=== PATIENT | male | born 1940 | race Caucasian/White ===

== ENCOUNTER 2019-01-16 07:01 | Emergency (ER) | payer OTHER ==
[2019-01-16 07:19] LABS: Absolute Lymphocytes (CBC) 1.3 K/uL (0.7-4.9); Absolute Monocytes 0.7 K/uL (0.1-1.3); Absolute Neutrophil 4.6 K/uL (1.8-8.0); Eosinophils % 1.7 % (0-4.4); Hematocrit 47.7 % (39.6-49.0); Lymphocytes % 19.3 % (15.3-44.8); MPV 9.5 fL (7.6-11.3); Monocytes % 9.9 % (3.3-12.3); RBC Red Blood Cell Count 5.16 M/uL (4.33-5.43)
[2019-01-16 07:25] LABS: Protime INR 0.99
--- NOTE | 2019-01-16 07:31 | ER ---
Nurse's Notes [facility] Name: Paz Crews Age: 78 yrs Sex: Male : 1940 Arrival Date: 01/16/2019 Time: 06:58 Bed 3 Private MD: Diagnosis: Cerebral infarction;Aphasia following cerebral infarction-445am Presentation: 01/16 07:00 Presenting complaint: EMS states: SLURRED SPEECH AND LEFT SIDED WEAKNESS. Transition of bp care: patient was not received from another setting of care. Onset of symptoms was January 16, 2019 at 04:45. Risk Assessment: Do you want to hurt yourself or someone else? Patient reports no desire to harm self or others. 07:00 Method Of Arrival: EMS: [facility] bp 07:00 Acuity: THELMA 1 bp 07:00 An acute neurological deficit is present. The charge nurse has been notified. The bp patient has been moved to a treatment area. The patients blood glucose was checked before arriving to the hospital and was found to be normal. Initial Sepsis Screen: Does the patient meet any 2 criteria? No. Patient's initial sepsis screen is negative. Does the patient have a suspected source of infection? No. Patient's initial sepsis screen is negative. Care prior to arrival: IV initiated. 22 GA, in the right antecubital area, Glucose check: 133. 07:15 Presenting complaint: Patient states: "I woke up at 3 am and I was fine and I was aa5 making some coffee and then at 4:45 am I noticed my left leg was weak and I was having trouble walking". 07:22 Note prehospital BP 200/100. ss Triage Assessment: 07:00 The onset of the patients symptoms was January 16, 2019 at 04:45. bp 08:10 General: Appears distressed, comfortable, Behavior is cooperative, appropriate for age, bp anxious. Neuro: Level of Consciousness is awake, alert, obeys commands, Oriented to person, place, time, situation, Appropriate for age Clam Picker are weak on left Weakness in left Gait is unsteady, Speech is slurred, Facial droop on left, Pupils are PERRLA, Intact. Stroke Activation: Symptom onset < 3 hours Physician: Stroke Attending; Name: ; Notified At: ; Arrived At: Physician: Chief Stroke Resident; Name: ; Notified At: ; Arrived At: Physician: Stroke Resident; Name: ; Notified At: ; Arrived At: Physician: ED Attending; Name: ; Notified At: ; Arrived At: Physician: ED Resident; Name: ; Notified At: ; Arrived At: Historical: - Allergies: 07:00 No Known Allergies; bp - Home Meds: 07:47 aspirin 81 mg Oral chew 1 tab once daily [Active]; Lisinopril Oral [Active]; bp 08:09 Plavix Oral [Active]; bp 07:54 fenofibrate oral oral [Active]; Plavix Oral [Active]; amlodipine oral [Active]; aa5 Simvastatin Oral [Active]; Lyrica Oral [Active]; Diltiazem Oral [Active]; - PMHx: 07:47 Hypertension; CVA; bp 08:09 High Cholesterol; bp - Immunization history:: Adult Immunizations up to date. - Social history:: Smoking status: Patient uses tobacco products, unknown amount. - Ebola Screening: : Patient negative for fever greater than or equal to 101.5 degrees Fahrenheit, and additional compatible Ebola Virus Disease symptoms Patient denies exposure to infectious person Patient denies travel to an Ebola-affected area in the 21 days before illness onset No symptoms or risks identified at this time. - Family history:: not pertinent. Screenin:58 Abuse screen: Denies threats or abuse. Denies injuries from another. Nutritional bp screening: No deficits noted. Tuberculosis screening: No symptoms or risk factors identified. Fall Risk No fall in past 12 months (0 pts). Secondary diagnosis (15 points) impaired mobility, IV access (20 points). Ambulatory Aid- None/Bed Rest/Nurse Assist (0 pts). Gait- Weak (10 pts.). Mental Status- Oriented to own ability (0 pts). Total Joy Fall Scale indicates High Risk Score (45 or more points). Fall prevention measures have been instituted. Side Rails Up X 2 Placed Close to Nursing Station Frequent Obs/Assessments Occuring As available patient and family educated on Fall Prevention Program and Strategies. Assessment: 07:15 VAN Scoring: Arm Drift: Minor drift Visual Disturbance: No visual disturbance noted. bp Aphasia: No aphasia noted. Neglect: No neglect noted. 07:15 General: Appears in no apparent distress. comfortable, obese, well groomed, well bp developed, Behavior is cooperative, appropriate for age, anxious. Pain: Denies pain. Neuro: Level of Consciousness is awake, alert, obeys commands, Oriented to person, place, time, situation, Appropriate for age. Cardiovascular: Rhythm is sinus rhythm. Respiratory: Reports Airway is patent Respiratory effort is even, unlabored, Respiratory pattern is regular, symmetrical. GI: No signs and/or symptoms were reported involving the gastrointestinal system. : No signs and/or symptoms were reported regarding the genitourinary system. EENT: No deficits noted. Derm: No deficits noted. Musculoskeletal: Range of motion: intact in all extremities. 07:15 Reassessment: Pt back from CT . Neuro: Level of Consciousness is awake, alert, obeys aa5 commands, Oriented to person, place, time, situation, Clam Picker are weak on left Weakness in left arm(s) leg(s) Speech is slurred, Facial droop on left, Pupils are PERRLA, Reports paresthesias in left arm and left leg. 07:25 Reassessment: Pt reports he takes a "blood thinner" but does not know the name, unable aa5 to contact pt's pharmacy at this time due to being closed. Pt states "somebody can just go to my house and look for the blood thinner, it's unlocked". Pt notified [facility] will be contacted to go look for the medications. VO to hold TPA administration at this time.. 07:32 Reassessment: Pt is unsure as to which medication his is currently taking for ss anticoagulation therapy. [facility] pharmacy closed at this time, JUAN FRANCISCO Ayon (PCP) has been paged. Called PD with patient's permission to enter home and locate medication on kitchen counter. 07:35 The patient has not been NPO before screening. The patient is alert, and able to follow bp commands. The patient exhibits slurred or garbled speech. The patient is not exhibiting difficulty speaking. The patient does not exhibit difficulty understanding words. The patient is able to swallow own secretions with no drooling or need for suction. Patient tolerated one teaspoon of water. No drooling, immediate coughing, gurgling, or clearing of the throat was noted. The patient tolerated 90mL of water. No drooling, immediate coughing, gurgling, or clearing of the throat was noted. The patient passed the bedside swallow screening. Oral medications may be given as ordered. Contact Physician for further diet orders. Provider notified of bedside swallow screening results: Isreal Montanez MD. 07:35 T-PA (Activase) Screening: Indications: Definite evidence of stroke, ischemic, embolic, bp or hypertensive: Yes. Treatment will start within 4.5 hours onset of symptoms: Yes. No evidence of intracranial hemorrhage or CT of head and no evidence of peripheral hemorrhage or recent CVA: Yes. Consent for thrombolytic therapy: Yes. 07:35 Reassessment: TPA consent form obtained and signed by patient. TPA on hold at bedside. .aa5 07:35 Reassessment: Patient is alert, oriented x 3, equal unlabored respirations, skin aa5 warm/dry/pink. Pain: Denies pain. Neuro: Level of Consciousness is awake, alert, obeys commands, Oriented to person, place, time, situation, Clam Picker are weak on left Weakness in left arm(s) leg(s) Speech is slurred, Facial droop on left, Pupils are PERRLA. Cardiovascular: Heart tones S1 S2 present Rhythm is sinus rhythm. Respiratory: Airway is patent Respiratory effort is even, unlabored, Respiratory pattern is regular, symmetrical, Breath sounds are clear bilaterally. Derm: Skin is pink, warm \\T\\ dry. 07:45 Reassessment: On phone again with [facility] stated that they could only see two ss medications, one being Amoxicillin and a muscle relaxer. Pt states that there are additional medications in a [employer] bag on the same counter. [facility] dispatch states they will notify the responding officer. 07:54 Reassessment: [facility] found Plavix to be medication of possible concern. Decision to ss administer TPA NOW. 07:55 Reassessment: TPA administered now per . PT currently in CT, accompanied by me and aa5 Bernie Wilson RN. On monitor. See Criteria for TPA Administration in pt's chart for dosage. . 08:05 Reassessment: PT RETURNED FROM [facility]A. [facility]S FOR TRANSPORT TO [facility]. 08:10 Reassessment: Pt back from CTA. Report given to life flight. . aa5 08:15 Reassessment: PT AN[facility]ION[facility]TE WITH [facility]. bp Vital Signs: 07:12 BP 180 / 91; Pulse 65; Resp 18; Temp 97; Pulse Ox 99% ; Weight 92.99 kg; Height 5 ft. 9 bp in. (175.26 cm); 07:35 BP 178 / 97; Pulse 64; Resp 16 S; Pulse Ox 97% on R/A; aa5 08:00 BP 163 / 99; Pulse 80; Resp 16 S; Pulse Ox 98% on R/A; Pain 0/10; aa5 07:12 Body Mass Index 30.27 (92.99 kg, 175.26 cm) bp [place] Coma Score: 07:12 Eye Response: spontaneous(4). Verbal Response: oriented(5). Motor Response: obeys ss commands(6). Total: 15. 07:27 Eye Response: spontaneous(4). Verbal Response: oriented(5). Motor Response: obeys ss commands(6). Total: 15. 07:35 Eye Response: spontaneous(4). Verbal Response: oriented(5). Motor Response: obeys aa5 commands(6). Total: 15. 08:00 Eye Response: spontaneous(4). Verbal Response: oriented(5). Motor Response: obeys aa5 commands(6). Total: 15. NIH Stroke Scale Scores: 07:15 NIHSS Score: 6 aa5 07:35 NIHSS Score: 6 aa5 07:36 NIHSS Score: 5 arturo 08:00 NIHSS Score: 6 aa5 ED Course: 06:58 Patient arrived in ED. bp 06:58 Patient has correct armband on for positive identification. Placed in gown. Bed in low bp position. Call light in reach. Side rails up X2. 07:00 Maintain EMS IV. Dressing intact. Good blood return noted. Site clean \\T\\ dry. Gauge \\T\\ bp site: 22 GAUGE R AC. 07:01 Triage completed. bp 07:10 Latricia Samuel, [employer] is Primary Nurse. aa5 07:11 Isreal Montanez MD is Attending Physician. arturo 07:13 CT Stroke Brain w/o Contrast In Process Unspecified. EDMS 07:25 X-ray completed. Portable x-ray completed in exam room. Patient tolerated procedure kp1 well. 07:25 Arm band placed on right wrist. ss 07:26 Stroke CXR 1 View In Process Unspecified. EDMS 07:30 Inserted saline lock: 20 gauge in left antecubital area, using aseptic technique. bp 07:43 \\T\\0721 Dr. Montanez initiated a transfer with Laine at the [facility] transfer eb center/ \\T\\ [address] Thurston the neurologist front maker for [facility] with Dr. Montanez for patient transfer consultation/ \\T\\ 0725 administrative approval given by Laine Shabazz ; patient is going to [address] [place] [address] bed 10 ; Dr. Thurston has accepted the patient in transfer ; report to be called to [phone] / \\T\\ 0736 called the [facility] flight team for transport/ Cam gave an ETA of 24 minutes. 08:05 CT Head Angio In Process Unspecified. EDMS 08:17 No provider procedures requiring assistance completed. Patient transferred, IV remains ss in place. Administered Medications: 07:40 Drug: NS 0.9% 1000 ml Route: IV; Rate: 1 bolus; Site: right antecubital; bp 08:10 Follow up: IV Status: Order to discontinue infusion; IV Intake: 400ml aa5 08:10 Follow up: IV Status: Order to discontinue infusion aa5 08:18 Follow up: IV Status: Infusion continued upon transfer bp 07:40 Drug: foLIC Acid 1 mg Route: IVPB; Site: right antecubital; bp 08:17 Follow up: IV Status: Completed infusion; IV Intake: 50ml bp 07:40 Drug: Pepcid 20 mg Route: IVP; Site: right antecubital; bp 08:17 Follow up: Response: No adverse reaction bp 07:55 Drug: ACTIvase {Co-Signature: ss (Bernie Wilson RN).} Route: IV Thrombolytics; Rate: aa5 calculated rate; Infused Over: 60 mins; 07:55 Follow up: Pt was given 8.37mg over 1 minute as bolus and 75.3mg over 1 hour (see TPA aa5 Administration paper in pt's chart for dosage) 08:10 Follow up: Response: No adverse reaction aa5 08:19 Follow up: Response: Other; CONTINUED ON TRANSFER bp Point of Care Testing: Blood Glucose: 07:12 Blood Glucose: 133 mg/dL; bp Ranges: Intake: 08:10 IV: 400ml; Total: 400ml. aa5 08:17 IV: 50ml; Total: 450ml. bp Outcome: 07:30 ER care complete, transfer ordered by arturo 08:17 Transferred by helicopter to [facility], Transfer form completed. ss X-rays sent w/ patient. 08:17 Condition: stable 08:17 Condition: stable 08:17 Instructed on the need for transfer. 08:21 Patient left the ED. NIH Stroke Scale - NIH Stroke Score Date: 01/16/2019 Time: 07:15 Total Score = 6 1a. Level of Consciousness (LOC) - 0(Alert) 1b. Level of Consciousness (LOC) (Year \\T\\ Age) - 0(Both) 1c. LOC Commands (Open \\T\\ Closes Eyes/Family Specialist) - 0(Both) 2. Best Gaze (Lateral Gaze Paresis) - 0(Normal) 3. Visual Field Loss - 0(No visual loss) 4. Facial Palsy - 1(Minor Paralysis) 5a. Left Arm: Motor (10-second hold) - 2(Drift, some effort against gravity) 5b. Right Arm: Motor (10-second hold) - 0(No drift) 6a. Left Leg: Motor (5-second hold - always test supine) - 1(Drift) 6b. Right Leg: Motor (5-second hold - always test supine) - 0(No drift) 7. Limb Ataxia (finger/nose \\T\\ heel/azul - test with eyes open) - 0(Absent) 8. Sensory Loss (pinprick arms/legs/face) - 1(Mild to moderate loss) 9. Best Language: Aphasia (description/naming/reading) - 0(No aphasia) 10. Dysarthria (speech clarity - read or repeat words) - 1(Mild to Moderate) 11. Extinction and Inattention (visual/tactile/auditory/spatial/personal) - 0(No abnormality) Initials: aa5 NIH Stroke Scale - NIH Stroke Score Date: 01/16/2019 Time: 07:35 Total Score = 6 1a. Level of Consciousness (LOC) - 0(Alert) 1b. Level of Consciousness (LOC) (Year \\T\\ Age) - 0(Both) 1c. LOC Commands (Open \\T\\ Closes Eyes/Family Specialist) - 0(Both) 2. Best Gaze (Lateral Gaze Paresis) - 0(Normal) 3. Visual Field Loss - 0(No visual loss) 4. Facial Palsy - 1(Minor Paralysis) 5a. Left Arm: Motor (10-second hold) - 2(Drift, some effort against gravity) 5b. Right Arm: Motor (10-second hold) - 0(No drift) 6a. Left Leg: Motor (5-second hold - always test supine) - 1(Drift) 6b. Right Leg: Motor (5-second hold - always test supine) - 0(No drift) 7. Limb Ataxia (finger/nose \\T\\ heel/azul - test with eyes open) - 0(Absent) 8. Sensory Loss (pinprick arms/legs/face) - 1(Mild to moderate loss) 9. Best Language: Aphasia (description/naming/reading) - 0(No aphasia) 10. Dysarthria (speech clarity - read or repeat words) - 1(Mild to Moderate) 11. Extinction and Inattention (visual/tactile/auditory/spatial/personal) - 0(No abnormality) Initials: aa5 NIH Stroke Scale - NIH Stroke Score Date: 01/16/2019 Time: 07:36 Total Score = 5 1a. Level of Consciousness (LOC) - 0(Alert) 1b. Level of Consciousness (LOC) (Year \\T\\ Age) - 0(Both) 1c. LOC Commands (Open \\T\\ Closes Eyes/Family Specialist) - 0(Both) 2. Best Gaze (Lateral Gaze Paresis) - 0(Normal) 3. Visual Field Loss - 0(No visual loss) 4. Facial Palsy - 1(Minor Paralysis) 5a. Left Arm: Motor (10-second hold) - 2(Drift, some effort against gravity) 5b. Right Arm: Motor (10-second hold) - 0(No drift) 6a. Left Leg: Motor (5-second hold - always test supine) - 0(No drift) 6b. Right Leg: Motor (5-second hold - always test supine) - 0(No drift) 7. Limb Ataxia (finger/nose \\T\\ heel/azul - test with eyes open) - 1(Present in one limb) 8. Sensory Loss (pinprick arms/legs/face) - 0(Normal) 9. Best Language: Aphasia (description/naming/reading) - 0(No aphasia) 10. Dysarthria (speech clarity - read or repeat words) - 1(Mild to Moderate) 11. Extinction and Inattention (visual/tactile/auditory/spatial/personal) - 0(No abnormality) Initials: arturo NIH Stroke Scale - NIH Stroke Score Date: 01/16/2019 Time: 08:00 Total Score = 6 1a. Level of Consciousness (LOC) - 0(Alert) 1b. Level of Consciousness (LOC) (Year \\T\\ Age) - 0(Both) 1c. LOC Commands (Open \\T\\ Closes Eyes/Family Specialist) - 0(Both) 2. Best Gaze (Lateral Gaze Paresis) - 0(Normal) 3. Visual Field Loss - 0(No visual loss) 4. Facial Palsy - 1(Minor Paralysis) 5a. Left Arm: Motor (10-second hold) - 2(Drift, some effort against gravity) 5b. Right Arm: Motor (10-second hold) - 0(No drift) 6a. Left Leg: Motor (5-second hold - always test supine) - 1(Drift) 6b. Right Leg: Motor (5-second hold - always test supine) - 0(No drift) 7. Limb Ataxia (finger/nose \\T\\ heel/azul - test with eyes open) - 0(Absent) 8. Sensory Loss (pinprick arms/legs/face) - 1(Mild to moderate loss) 9. Best Language: Aphasia (description/naming/reading) - 0(No aphasia) 10. Dysarthria (speech clarity - read or repeat words) - 1(Mild to Moderate) 11. Extinction and Inattention (visual/tactile/auditory/spatial/personal) - 0(No abnormality) Initials: aa5 Signatures: Dispatcher [employer] EDMS Isreal Montanez MD MD cha Calderon, Audri, [employer] RN aa5 Bernie Wilson, Deena Swain RN kp1 Tesfaye Reyes RN RN bp Botello, Elizabeth eb Shelby Smirch RN Corrections: (The following items were deleted from the chart) 07:03 07:01 Care prior to arrival: IV initiated. 22 GA, in the right antecubital ss area, Glucose check: 133 BP 200/100 07:03 07:01 Initial Sepsis Screen: [facility] 07:03 07:01 Transition of care: patient was not received from another setting of care. 07:03 07:01 Presenting complaint: EMS states: L sided weakness and slurred speech that began at 0445 this morning. 07:03 07:01 Onset of symptoms was January 16, 2019 at 04:[address] [facility] 07:03 07:01 Acuity: THLEMA [address] [facility] 07:03 07:01 Stroke Activation: Symptom onset < 3 hours [facility] 07:03 07:01 Method Of Arrival: EMS: 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 08:04 07:15 NIHSS Score: 6 bp aa5 08:10 07:00 Social history: Smoking status: Patient/guardian denies using tobacco, bp bp 08:19 07:43 Reassessment: On phone again with [facility]. [facility] stated that they could only ss see two medications, one being Amoxicillin and a muscle relaxer. Pt states that there are additional medications in a [employer] bag on the same counter. [facility] dispatch states they will notify the responding officer. ss 08:39 08:04 NIHSS Score: 6 aa5 aa5 08:47 08:18 IV Status: Infusion continued upon transfer bp aa5
--- NOTE | 2019-01-16 07:31 | EDPHYS ---
Physician Documentation [facility] Name: Paz Crews Age: 78 yrs Sex: Male : 1940 Arrival Date: 01/16/2019 Time: 06:58 Bed 3 Private MD: ED Physician Isreal Montanez HPI: 01/16 07:20 This 78 yrs old Male presents to ER via EMS with complaints of S/S of arturo Possible Stroke. 07:20 The patient's problem is reported as a facial droop, weakness, in the left upper arturo extremity, in the left lower extremity. Onset: The symptoms/episode began/occurred this morning, at 04:45. Duration: The episode is continuous. Context: occurred at home. The symptoms are alleviated by nothing. The symptoms are aggravated by nothing. Associated signs and symptoms: Pertinent positives: ataxia, weakness. Severity of symptoms: At their worst the symptoms were moderate in the emergency department the symptoms are unchanged. Patient's baseline: Neuro: alert and fully oriented. The patient has not experienced similar symptoms in the past. Historical: - Allergies: 07:00 No Known Allergies; bp - Home Meds: 07:47 aspirin 81 mg Oral chew 1 tab once daily [Active]; Lisinopril Oral [Active]; bp 08:09 Plavix Oral [Active]; bp 07:54 fenofibrate oral oral [Active]; Plavix Oral [Active]; amlodipine oral [Active]; aa5 Simvastatin Oral [Active]; Lyrica Oral [Active]; Diltiazem Oral [Active]; - PMHx: 07:47 Hypertension; CVA; bp 08:09 High Cholesterol; bp - Immunization history:: Adult Immunizations up to date. - Social history:: Smoking status: Patient uses tobacco products, unknown amount. - Ebola Screening: : Patient negative for fever greater than or equal to 101.5 degrees Fahrenheit, and additional compatible Ebola Virus Disease symptoms Patient denies exposure to infectious person Patient denies travel to an Ebola-affected area in the 21 days before illness onset No symptoms or risks identified at this time. - Family history:: not pertinent. ROS: 07:20 Constitutional: Negative for fever, chills, and weight loss, Eyes: Negative for injury, arturo pain, redness, and discharge, ENT: Negative for injury, pain, and discharge, Neck: Negative for injury, pain, and swelling, Cardiovascular: Negative for chest pain, palpitations, and edema, Respiratory: Negative for shortness of breath, cough, wheezing, and pleuritic chest pain, Abdomen/GI: Negative for abdominal pain, nausea, vomiting, diarrhea, and constipation, Back: Negative for injury and pain, : Negative for injury, bleeding, discharge, and swelling, MS/Extremity: Negative for injury and deformity, Skin: Negative for injury, rash, and discoloration, Psych: Negative for depression, anxiety, suicide ideation, homicidal ideation, and hallucinations, Allergy/Immunology: Negative for hives, rash, and allergies, Endocrine: Negative for neck swelling, polydipsia, polyuria, polyphagia, and marked weight changes, Hematologic/Lymphatic: Negative for swollen nodes, abnormal bleeding, and unusual bruising. 07:20 Neuro: Positive for weakness, of the left arm. Exam: 07:20 Radiologist reports: not acute arturo 07:20 Constitutional: This is a well developed, well nourished patient who is awake, alert, and in no acute distress. Eyes: Pupils equal round and reactive to light, extra-ocular motions intact. Lids and lashes normal. Conjunctiva and sclera are non-icteric and not injected. Cornea within normal limits. Periorbital areas with no swelling, redness, or edema. ENT: Nares patent. No nasal discharge, no septal abnormalities noted. Tympanic membranes are normal and external auditory canals are clear. Oropharynx with no redness, swelling, or masses, exudates, or evidence of obstruction, uvula midline. Mucous membranes moist. Neck: Trachea midline, no thyromegaly or masses palpated, and no cervical lymphadenopathy. Supple, full range of motion without nuchal rigidity, or vertebral point tenderness. No Meningismus. Chest/axilla: Normal chest wall appearance and motion. Nontender with no deformity. No lesions are appreciated. Cardiovascular: Regular rate and rhythm with a normal S1 and S2. No gallops, murmurs, or rubs. Normal PMI, no JVD. No pulse deficits. Respiratory: Lungs have equal breath sounds bilaterally, clear to auscultation and percussion. No rales, rhonchi or wheezes noted. No increased work of breathing, no retractions or nasal flaring. Abdomen/GI: Soft, non-tender, with normal bowel sounds. No distension or tympany. No guarding or rebound. No evidence of tenderness throughout. Back: No spinal tenderness. No costovertebral tenderness. Full range of motion. Male : Normal genitalia with no discharge or lesions. Skin: Warm, dry with normal turgor. Normal color with no rashes, no lesions, and no evidence of cellulitis. Psych: Awake, alert, with orientation to person, place and time. Behavior, mood, and affect are within normal limits. 07:20 Head/face: Noted is left corner of mouth droop. 07:20 Cardiovascular: Rate: normal, Rhythm: regular, Pulses: no pulse deficits are appreciated, Heart sounds: normal, Edema: is not appreciated, JVD: is not appreciated. Vital Signs: 07:12 BP 180 / 91; Pulse 65; Resp 18; Temp 97; Pulse Ox 99% ; Weight 92.99 kg; Height 5 ft. 9 bp in. (175.26 cm); 07:35 BP 178 / 97; Pulse 64; Resp 16 S; Pulse Ox 97% on R/A; aa5 08:00 BP 163 / 99; Pulse 80; Resp 16 S; Pulse Ox 98% on R/A; Pain 0/10; aa5 07:12 Body Mass Index 30.27 (92.99 kg, 175.26 cm) bp NIH Stroke Scale Scores: 07:15 NIHSS Score: 6 aa5 07:35 NIHSS Score: 6 aa5 07:36 NIHSS Score: 5 arturo 08:00 NIHSS Score: 6 aa5 Henderson Coma Score: 07:12 Eye Response: spontaneous(4). Verbal Response: oriented(5). Motor Response: obeys ss commands(6). Total: 15. 07:27 Eye Response: spontaneous(4). Verbal Response: oriented(5). Motor Response: obeys ss commands(6). Total: 15. 07:35 Eye Response: spontaneous(4). Verbal Response: oriented(5). Motor Response: obeys aa5 commands(6). Total: 15. 08:00 Eye Response: spontaneous(4). Verbal Response: oriented(5). Motor Response: obeys aa5 commands(6). Total: 15. MDM: 07:[address] [facility] 07:28 Data reviewed: vital signs, nurses notes, lab test result(s), EKG, radiologic studies, [facility] CT scan, plain films. 01/16 07:00 Order name: Troponin (emerg Dept Use Only) bp 01/16 07:00 Order name: Magnesium bp 01/16 07:00 Order name: Lipase bp 01/16 07:00 Order name: Hepatic Function bp 01/16 07:00 Order name: CPK bp 01/16 07:00 Order name: Ckmb bp 01/16 07:00 Order name: Amylase, Serum bp 01/16 07:00 Order name: Basic Metabolic Panel; Complete Time: 07:47 bp 01/16 07:00 Order name: CBC with Diff; Complete Time: 07:47 bp 01/16 07:00 Order name: Protime (+inr); Complete Time: 07:47 bp 01/16 07:00 Order name: Ptt, Activated; Complete Time: 07:47 bp 01/16 07:02 Order name: Troponin (Emerg Dept Use Only); Complete Time: 07:47 EDMS 01/16 07:02 Order name: Magnesium; Complete Time: 07:47 EDMS 01/16 07:02 Order name: Lipase; Complete Time: 07:47 EDMS 01/16 07:00 Order name: CT Stroke Brain w/o Contrast bp 01/16 07:00 Order name: Stroke CXR 1 View bp 01/16 07:00 Order name: EKG; Complete Time: 07:03 bp 01/16 07:00 Order name: Accucheck; Complete Time: 07:26 bp 01/16 07:00 Order name: Cardiac monitoring; Complete Time: 07:26 bp 01/16 07:02 Order name: Liver (Hepatic) Function; Complete Time: 07:47 EDMS 01/16 07:02 Order name: Creatine Phosphokinase; Complete Time: 07:47 EDMS 01/16 07:02 Order name: CKMB Creatine Kinase MB; Complete Time: 07:47 EDMS 01/16 07:02 Order name: Amylase Level; Complete Time: 07:47 EDMS 01/16 07:20 Order name: CRP; Complete Time: 07:47 arturo 01/16 07:20 Order name: Sed Rate; Complete Time: 08:08 arturo 01/16 07:29 Order name: CT Head Angio arturo 01/16 07:00 Order name: EKG - Nurse/Tech; Complete Time: 07:26 bp 01/16 07:00 Order name: IV Saline Lock; Complete Time: 07: bp 01/16 07:00 Order name: Labs collected and sent; Complete Time: 07: bp 01/16 07:00 Order name: NPO; Complete Time: 07: bp 01/16 07:00 Order name: O2 Per Protocol; Complete Time: 07: bp 01/16 07:00 Order name: O2 Sat Monitoring; Complete Time: 07: bp 01/16 07:00 Order name: Stroke Swallow Screen; Complete Time: 17:29 bp Administered Medications: 07:40 Drug: NS 0.9% 1000 ml Route: IV; Rate: 1 bolus; Site: right antecubital; bp 08:10 Follow up: IV Status: Order to discontinue infusion; IV Intake: 400ml aa5 08:10 Follow up: IV Status: Order to discontinue infusion aa5 08:18 Follow up: IV Status: Infusion continued upon transfer bp 07:40 Drug: foLIC Acid 1 mg Route: IVPB; Site: right antecubital; bp 08:17 Follow up: IV Status: Completed infusion; IV Intake: 50ml bp 07:40 Drug: Pepcid 20 mg Route: IVP; Site: right antecubital; bp 08:17 Follow up: Response: No adverse reaction bp 07:55 Drug: ACTIvase {Co-Signature: ss (Bernie Wilson RN).} Route: IV Thrombolytics; Rate: aa5 calculated rate; Infused Over: 60 mins; 07:55 Follow up: Pt was given 8.37mg over 1 minute as bolus and 75.3mg over 1 hour (see TPA aa5 Administration paper in pt's chart for dosage) 08:10 Follow up: Response: No adverse reaction aa5 08:19 Follow up: Response: Other; CONTINUED ON TRANSFER bp Point of Care Testing: Blood Glucose: 07:12 Blood Glucose: 133 mg/dL; bp Ranges: Critical Glucose Levels:Adult <50 mg/dl or >400 mg/dl <40 mg/dl or >180 mg/dl Disposition: 01/16/19 07:[address] [facility]. 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 - Reason for transfer: Higher level of care. - Accepting physician is to stroke team , [facility] [place]. - Condition is Stable. - Problem is new. - Symptoms have improved. NIH Stroke Scale - NIH Stroke Score Date: 01/16/2019 Time: 07:15 Total Score = 6 1a. Level of Consciousness (LOC) - 0(Alert) 1b. Level of Consciousness (LOC) (Year \T\ Age) - 0(Both) 1c. LOC Commands (Open \T\ Closes Eyes/Mobile Lounge Driver Or Operator) - 0(Both) 2. Best Gaze (Lateral Gaze Paresis) - 0(Normal) 3. Visual Field Loss - 0(No visual loss) 4. Facial Palsy - 1(Minor Paralysis) 5a. Left Arm: Motor (10-second hold) - 2(Drift, some effort against gravity) 5b. Right Arm: Motor (10-second hold) - 0(No drift) 6a. Left Leg: Motor (5-second hold - always test supine) - 1(Drift) 6b. Right Leg: Motor (5-second hold - always test supine) - 0(No drift) 7. Limb Ataxia (finger/nose \T\ heel/azul - test with eyes open) - 0(Absent) 8. Sensory Loss (pinprick arms/legs/face) - 1(Mild to moderate loss) 9. Best Language: Aphasia (description/naming/reading) - 0(No aphasia) 10. Dysarthria (speech clarity - read or repeat words) - 1(Mild to Moderate) 11. Extinction and Inattention (visual/tactile/auditory/spatial/personal) - 0(No abnormality) Initials: aa5 NIH Stroke Scale - NIH Stroke Score Date: 01/16/2019 Time: 07:35 Total Score = 6 1a. Level of Consciousness (LOC) - 0(Alert) 1b. Level of Consciousness (LOC) (Year \T\ Age) - 0(Both) 1c. LOC Commands (Open \T\ Closes Eyes/Mobile Lounge Driver Or Operator) - 0(Both) 2. Best Gaze (Lateral Gaze Paresis) - 0(Normal) 3. Visual Field Loss - 0(No visual loss) 4. Facial Palsy - 1(Minor Paralysis) 5a. Left Arm: Motor (10-second hold) - 2(Drift, some effort against gravity) 5b. Right Arm: Motor (10-second hold) - 0(No drift) 6a. Left Leg: Motor (5-second hold - always test supine) - 1(Drift) 6b. Right Leg: Motor (5-second hold - always test supine) - 0(No drift) 7. Limb Ataxia (finger/nose \T\ heel/azul - test with eyes open) - 0(Absent) 8. Sensory Loss (pinprick arms/legs/face) - 1(Mild to moderate loss) 9. Best Language: Aphasia (description/naming/reading) - 0(No aphasia) 10. Dysarthria (speech clarity - read or repeat words) - 1(Mild to Moderate) 11. Extinction and Inattention (visual/tactile/auditory/spatial/personal) - 0(No abnormality) Initials: aa5 NIH Stroke Scale - NIH Stroke Score Date: 01/16/2019 Time: 07:36 Total Score = 5 1a. Level of Consciousness (LOC) - 0(Alert) 1b. Level of Consciousness (LOC) (Year \T\ Age) - 0(Both) 1c. LOC Commands (Open \T\ Closes Eyes/Mobile Lounge Driver Or Operator) - 0(Both) 2. Best Gaze (Lateral Gaze Paresis) - 0(Normal) 3. Visual Field Loss - 0(No visual loss) 4. Facial Palsy - 1(Minor Paralysis) 5a. Left Arm: Motor (10-second hold) - 2(Drift, some effort against gravity) 5b. Right Arm: Motor (10-second hold) - 0(No drift) 6a. Left Leg: Motor (5-second hold - always test supine) - 0(No drift) 6b. Right Leg: Motor (5-second hold - always test supine) - 0(No drift) 7. Limb Ataxia (finger/nose \T\ heel/azul - test with eyes open) - 1(Present in one limb) 8. Sensory Loss (pinprick arms/legs/face) - 0(Normal) 9. Best Language: Aphasia (description/naming/reading) - 0(No aphasia) 10. Dysarthria (speech clarity - read or repeat words) - 1(Mild to Moderate) 11. Extinction and Inattention (visual/tactile/auditory/spatial/personal) - 0(No abnormality) Initials: arturo NIH Stroke Scale - NIH Stroke Score Date: 01/16/2019 Time: 08:00 Total Score = 6 1a. Level of Consciousness (LOC) - 0(Alert) 1b. Level of Consciousness (LOC) (Year \T\ Age) - 0(Both) 1c. LOC Commands (Open \T\ Closes Eyes/Mobile Lounge Driver Or Operator) - 0(Both) 2. Best Gaze (Lateral Gaze Paresis) - 0(Normal) 3. Visual Field Loss - 0(No visual loss) 4. Facial Palsy - 1(Minor Paralysis) 5a. Left Arm: Motor (10-second hold) - 2(Drift, some effort against gravity) 5b. Right Arm: Motor (10-second hold) - 0(No drift) 6a. Left Leg: Motor (5-second hold - always test supine) - 1(Drift) 6b. Right Leg: Motor (5-second hold - always test supine) - 0(No drift) 7. Limb Ataxia (finger/nose \T\ heel/azul - test with eyes open) - 0(Absent) 8. Sensory Loss (pinprick arms/legs/face) - 1(Mild to moderate loss) 9. Best Language: Aphasia (description/naming/reading) - 0(No aphasia) 10. Dysarthria (speech clarity - read or repeat words) - 1(Mild to Moderate) 11. Extinction and Inattention (visual/tactile/auditory/spatial/personal) - 0(No abnormality) Initials: aa5 Signatures: Dispatcher [employer] EDMS Isreal Montanez MD MD cha Calderon, Audri, RN Bernie Garcia, MAXIMUS STROUD Tesfaye Reyes RN RN bp Shelby Smirch RN Corrections: (The following items were deleted from the chart) 08:10 07:00 Social history: Smoking status: Patient/guardian denies using tobacco, bp bp 08:15 07:31 Urine Dipstick-Ancillary ordered. arturo [place]asgow 08:21 07:30 01/16/2019 07:[address] [facility]. 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 Reason for transfer: Higher level of care. Accepting physician is to stroke team , [facility] [place]. Condition is Stable. Problem is new. Symptoms have improved. arturo
[2019-01-16 07:37] LABS: ALT/SGPT 19 U/L (12-78); AST/SGOT 10 U/L (15-37); Albumin 4.1 g/dL (3.4-5.0); Alkaline Phosphatase 45 U/L (45-117); Amylase Level 50 U/L (25-115); BUN Blood Urea Nitrogen 26 mg/dL (7-18); Bicarbonate 28 mmol/L (21-32); Bilirubin Direct 0.1 mg/dL (0-0.2); Bilirubin Total 0.4 mg/dL (0.2-1.0); CKMB Creatine Kinase MB 3.5 ng/mL (0.3-3.6); Creatine Phosphokinase 110 U/L (39-308); Glucose Level 131 mg/dL (74-106); Lipase 447 U/L (73-393); Magnesium 2.2 mg/dL (1.8-2.4); Potassium 4.1 mmol/L (3.5-5.1); Protein, Total 7.3 g/dL (6.4-8.2); Sodium Level 147 mmol/L (136-145); Troponin (Emerg Dept Use Only) < 0.02 ng/mL (0.0-0.045)
[2019-01-16] MEDS ORDERED: NA CHLORIDE 0.9% 1,000 ML ONE (07:45)
[2019-01-16] MEDS ORDERED: FAMOTIDINE 20 MG/2 ML VIAL IV ONE (07:46)
[2019-01-16] MEDS ORDERED: FOLIC ACID 5 MG/ML VIAL ONE (07:47)
[2019-01-16] MEDS ORDERED: NA CHLORIDE 0.9% 50 ML IV ONE (07:47)
[2019-01-16] MEDS ORDERED: ALTEPLASE 100 ML IV ONE (07:55)
[2019-01-16] MEDS ORDERED: NA CHLORIDE 0.9% 250 ML ONE (07:58)
--- NOTE | 2019-01-16 08:21 | RAD REPORT ---
EXAM DESCRIPTION: CT - Ct Stroke Brain Wo Cont - 01/16/2019 7:13 am CLINICAL HISTORY: Stroke protocol study, slurred speech, left-sided weakness CLINICAL HISTORY: None. TECHNIQUE: Axial 5 millimeter thick images of the head were obtained without IV contrast. All CT scans are performed using dose optimization technique as appropriate and may include automated exposure control or mA/KV adjustment according to patient size. FINDINGS: No intracranial hemorrhage, mass, or cerebral edema. No acute cortical based infarction co nfirmed. Chronic ischemic changes are seen in the cerebral white matter. Atrophy changes are mild. Gigi christy has ventriculomegaly that is out of proportion to the amount of volume loss. Correlation is nee ded with any clinical findings of normal pressure hydrocephalus. An obstructing mass is not identifie d. Diminished attenuation along the lateral margin left temporal lobe in the middle cranial fossa cou ld be volume averaging affects or possibly an area of old infarction. Visualized portions of the mastoid air cells, paranasal sinuses, and orbits are unremarkable. Findings telephoned to Sh[facility]y 7:14 a.m. IMPRESSION: No hemorrhage or mass identified. No acute cortical based infarction. Ventriculomegaly out of proportion to volume loss. Correlation is needed with any clinical findings o f normal pressure hydrocephalus. Mild chronic ischemic changes are seen. Chronic ischemic changes can mask nonhemorrhagic acute infarc tion. MR brain followup can be obtained if there is ongoing concern for acute ischemia.
--- NOTE | 2019-01-16 08:25 | RAD REPORT ---
EXAM DESCRIPTION: CT - Head angio - 01/16/2019 8:05 am CLINICAL HISTORY: Slurred speech, left-sided weakness, stroke protocol patient TECHNIQUE: During dynamic enhancement using nonionic IV contrast, axial 1 millimeter thick images of the head were obtained. Sagittal and axial reconstruction images were generated using maximum intens ity projection protocol and reviewed. All CT scans are performed using dose optimization technique as appropriate and may include automated exposure control or mA/KV adjustment according to patient size. COMPARISON: CT head January 16 FINDINGS: No aneurysm or vascular malformation identified. Major venous sinuses are patent. Prominent calcifications are present in the cavernous portions of each internal carotid artery. Steno sis does not exceed 50%. No named branch occlusion identified. No vasculitis or other diffuse vascula r process. Atherosclerotic changes are mild in the peripheral branches. IMPRESSION: Prominent atherosclerotic calcifications in the distal internal carotid arteries withou t stenosis greater than 50%. No occlusion or significant vascular finding. Atherosclerotic changes in the peripheral branches are mild.
--- NOTE | 2019-01-16 08:48 | RAD REPORT ---
EXAM DESCRIPTION: RAD - Chest Single View - 01/16/2019 7:26 am CLINICAL HISTORY: Stroke protocol chest film COMPARISON: None. TECHNIQUE: AP portable chest image was obtained 0723 hours . FINDINGS: Lungs are clear. Heart and vasculature are normal. No measurable pleural effusion and no p neumothorax. No acute bony abnormality seen. No acute aortic findings suspected. IMPRESSION: No acute cardiopulmonary process.
--- NOTE | 2019-01-17 05:54 | EKG ---
Test Date: 2019-01-16 Test Time: 07:12:26 Bi Application Developer: GREGORIA MEASUREMENT RESULTS: Intervals: Rate: 72 KS: 210 QRSD: 144 QT: 442 QTc: 483 [place]: P: 68 KS: 210 QRS: -67 T: 40 INTERPRETIVE STATEMENTS: Sinus rhythm with 1st degree AV block Right bundle branch block Left axis Abnormal ECG No previous ECG available for comparison Electronically Signed On 01-17-19 05:54:02 CDT by Micah Fleming
== END 2019-01-16 08:21 | disposition short-term general hospital (02) ==
LOC: ER 07:01
DX: I63.9 Cerebral infarction, unspecified (principal); R47.01 Aphasia; R29.706 NIHSS score 6; I10 Essential (primary) hypertension; E78.00 Pure hypercholesterolemia, unspecified; Z72.0 Tobacco use; Z79.01 Long term (current) use of anticoagulants; Z79.82 Long term (current) use of aspirin; Z86.73 Personal history of transient ischemic attack (TIA), and cerebral infarction without residual deficits
CPT/HCPCS: 96365; 92977; 93005; 85025; 80048; 36415; 82150; 83735; 82550; 85610; 82962; 80076; 85730; 85652; 84484; 82553; 83690; 86140; 70496; 70450; 71045; 96375; 99285; 96374; Q9967; J2997; J7030

== ENCOUNTER 2020-04-17 00:25 | Inpatient (IN) | payer OTHER ==
--- OUTSIDE RECORDS SUMMARY | 2020-04-17 00:27 | XMS REPORT | Clinical Summary ---
:1940 Author Organization [facility] Address [address] [place] [address] Care Team Providers Name Role Phone Unavailable Primary Care Provider Unavailable Allergies No Known Allergies Medications Medication Sig Dispensed Refills Start Date End Date Status apixaban (ELIQUIS) 5 Take 1 tablet 0 01/21/2019 Active mg Tab tablet (5 mg total) by mouth 2 (two) times daily. amLODIPine (NORVASC) Take 1 tablet 0 01/22/201901/03 10 MG tablet (10 mg total) by mouth daily. atorvastatin (LIPITOR) Take 1 tablet 0 01/21/2019 80 MG tablet (80 mg total) by mouth nightly. lisinopril Take 1 tablet 0 01/22/2019 01/22/2020 Exp ired (PRINIVIL,ZESTRIL) 5 (5 mg total) by MG tablet mouth daily. senna (SENOKOT) 8.6 mg Take 1 tablet 0 01/21/2019 tablet (8.6 mg total) by mouth daily with lunch. Active Problems Problem Noted Date Acute ischemic stroke 01/16/2019 Received tissue plasminogen activator (t-PA) less than 24 hours prior to 01/16/2019 arrival Social History Tobacco Use Types Packs/Day Years Used Date Current Every Day Smoker Cigarettes 1 57 Sta rted: 01/16/1955 Smokeless Tobacco: Never Used Tobacco Cessation: Ready to Quit: No; Co unseling Given: No Comments: "Don't preach me". Alcohol Use Drinks/Week oz/Week Comments Yes 1 Glasses of wine 0.6 Alcohol Habits Answer Date Recorded How often do you have a drink containing alcohol? 2-4 times a month 01/16/2019 How many drinks containing alcohol do you have on a 1 or 2 01/16/2019 typical day when you are drinking? How often do you have six or more drinks on one Never 01/16/2019 occasion? Sex Assigned at Date Recorded Not on file Job Start Date Occupation Industry Not on file Not on file Not on file Travel History Travel Start Travel End No recent travel history available. Last Filed Vital Signs Not on file Plan of Treatment Not on file Results Not on fileafter 04/17/2019 Insurance Payer Benefit Plan / Group Subscriber ID Type Phone A ddress [employer] xxxxxxxxx Maps Contracted
--- OUTSIDE RECORDS SUMMARY | 2020-04-17 00:29 | XMS REPORT | Continuity of Care Document ---
:1940 Author Organization [facility] t Address [address] [place] [address] Care Team Providers Name Role Phone JOSE ARMANDO BARRETT Attending Clinician Unavailable JOSE ARMANDO BARRETT Admitting Clinician Unavailable Problems Condition Condition Condition Status Onset Resolution Last Treating Co mments Source Name Details Category Date Date Treatment Clinician Date Acute Acute Disease [facility] Received [facility]ceived Disease [facility] plasminoge plasminoge 00:00: Co dical n n 00 Center activator activator (t-PA) (t-PA) less than less than 24 hours 24 hours prior to prior to arrival arrival Allergies, Adverse Reactions, Alerts This patient has no known allergies or adverse reactions. Social History Social Habit Start Date Stop Date Quantity Comments Source History of tobacco 1955-01[birth year]16 Current [facility] use [facility]00 day smoker [facility] Sex Assigned At [facility] Cigarettes smoked 2019-01-16 2019-01-[address] [facility] - current (pack per 00:00:00 00:00:00 Medical Center day) - Reported Cigarette 2019-01-16 2019-01-[address] [facility] - pack-years 00:00:00 00:00:00 Medical Center History [facility] 2019-01-16 2019-01-[address] [facility] - Alcohol Frequency 00:00:00 00:00:00 Medical Center History [facility] 2019-01-16 2019-01-[address] [facility] - Alcohol Std Drinks 00:00:00 00:00:00 Medica Center History [facility] 2019-01-16 2019-01-[address] [facility] - Alcohol Binge 00:00:00 00:00:[address] Tobacco Comment 2019-01-16 2019-01-16 "Don't preach [facility] - 00:00:00 00:00:00 me". Medical Center Smoking Status Start Date Stop Date Source Current every day smoker 2019-01-16 00:00:[address] [facility] Medications Ordered Filled Start Stop Current Ordering Indication Dosage Frequency Signature Comments Components Source Medication Medication Date Date Medication? Clinician (SIG) Name Name amLODIPine 2019- No 10mg QD Take [address] [facility] (NORVASC) 01-22 tablet (10 Panfilo es - 10 MG 00:00: 23:59 mg total) Medica l tablet 00 :00 by mouth Center daily. lisinopril 2019- No 5mg QD Take [address] [facility] (PRINIVIL,Z 01-22 tablet (5 Alisa kes - ESTRIL) 5 00:00: 23:59 mg total) Me dical MG tablet 00 :00 by mouth Center daily. apixaban Yes 5mg Q.5D Take [address] [facility] (ELIQUIS) 5 - tablet (5 Panfilo es - mg Tab 00:00: mg total) Medica l tablet 00 by mouth 2 Center (two) times daily. atorvastati 2019- No 80mg QD Take [address] [facility] n (LIPITOR) 01-21 tablet (80 L ukes - 80 MG 00:00: 23:59 mg total) Medica l tablet 00 :00 by mouth Center nightly. senna 2019- No 8.6mg Take [address] [facility] (SENOKOT) 01-21 tablet [facility] - 8.6 mg 00:00: 23:59 (8.6 mg Medical tablet 00 :00 total) by Center mouth daily with lunch. Procedures This patient has no known procedures. Results Test Description Test Time Test Comments Results Result [facility] e Comments MILANA, HIPOLITO, SWALLOW 2019-01-21 Reason for FINAL REPORT PATIENT FUNCTION, WITH 09:17:00 exam:->dysphagi ID: [id number] CINE OR VIDEO a Modified barium swallow dated 01/21/2019 Comment: Total patient fluoro time is 1.3 minutes. Total number of fluoroscopic images are2. Modified barium swallow was performed with assistance of speech pathologist. Patient swallowed liquid barium under fluoroscopy. There was prompt passage of contrast from oropharynx into the esophagus. Normal movement of epiglottis was noted. No aspiration noted during examination. Impression: No aspiration. Signed: Sonny Morales MDReport Verified Date/Time: 01/21/2019 09:17:36 Reading Location: [facility] B1 [id number] CT Body Reading Room REHENSIVE METABOLIC PANEL 2019-01-21 05:49:00 Test Item Value Reference Range Interpretation Comme nts TOTAL PROTEIN (BEAKER) 7.1 gm/dL 6.0-8.3 (test code = 770) ALBUMIN (BEAKER) (test code 4.1 g/dL 3.5-5.0 = 1145) ALKALINE PHOSPHATASE 43 U/L 40-150 (BEAKER) (test code = 346) BILIRUBIN TOTAL (BEAKER) 0.7 mg/dL 0.2-1.2 (test code = 377) SODIUM (BEAKER) (test code 140 meq/L 136-145 = 381) POTASSIUM (BEAKER) (test 3.7 meq/L 3.5-5.1 code = 379) CHLORIDE (BEAKER) (test 109 meq/L 98-107 H code = 382) CO2 (BEAKER) (test code = 20 meq/L 22-29 L 355) BLOOD UREA NITROGEN 31 mg/dL 7-21 H (BEAKER) (test code = 354) CREATININE (BEAKER) (test 0.98 mg/dL 0.57-1.25 code = 358) GLUCOSE RANDOM (BEAKER) 100 mg/dL 70-105 (test code = 652) CALCIUM (BEAKER) (test code 9.8 mg/dL 8.4-10.2 = 697) AST (SGOT) (BEAKER) (test 15 U/L 5-34 code = 353) ALT (SGPT) (BEAKER) (test 19 U/L 6-55 code = 347) EGFR (BEAKER) (test code = 74 mL/min/1.73 sq m ESTIMATED GFR IS NOT 1092) ACCURATE CRE ATININE CLEARANCE IN CO EDICTING GLOMERULAR FILT RATION RATE. ESTIMATED GFR IS NOT APPLICABLE FOR DIALYSIS PATIENTS. CBC W/PLT COUNT & AUTO [id number] 05:18:00 Test Item Value Reference Range Interpretation Comments WHITE BLOOD CELL COUNT (BEAKER) 8.7 K/ L 3.5-10.5 (test code = 775) RED BLOOD CELL COUNT (BEAKER) 5.23 M/ L 4.63-6.08 (test code = 761) HEMOGLOBIN (BEAKER) (test code = 16.5 GM/DL 13.7-17.5 410) HEMATOCRIT (BEAKER) (test code = 47.1 % 40.1-51.0 411) MEAN CORPUSCULAR VOLUME (BEAKER) 90.1 fL 79.0-92.2 (test code = 753) MEAN CORPUSCULAR HEMOGLOBIN 31.5 pg 25.7-32.2 (BEAKER) (test code = 751) MEAN CORPUSCULAR HEMOGLOBIN CONC 35.0 GM/DL 32.3-36.5 (BEAKER) (test code = 752) RED CELL DISTRIBUTION WIDTH 13.0 % 11.6-14.4 (BEAKER) (test code = 412) PLATELET COUNT (BEAKER) (test 183 K/CU MM 150-450 code = 756) MEAN PLATELET VOLUME (BEAKER) 11.0 fL 9.4-12.4 (test code = 754) NUCLEATED RED BLOOD CELLS 0 /100 WBC 0-0 (BEAKER) (test code = 413) NEUTROPHILS RELATIVE PERCENT 59 % (BEAKER) (test code = 429) LYMPHOCYTES RELATIVE PERCENT 26 % (BEAKER) (test code = 430) MONOCYTES RELATIVE PERCENT 13 % (BEAKER) (test code = 431) EOSINOPHILS RELATIVE PERCENT 1 % (BEAKER) (test code = 432) BASOPHILS RELATIVE PERCENT 1 % (BEAKER) (test code = 437) NEUTROPHILS ABSOLUTE COUNT 5.14 K/ L 1.78-5.38 (BEAKER) (test code = 670) LYMPHOCYTES ABSOLUTE COUNT 2.28 K/ L 1.32-3.57 (BEAKER) (test code = 414) MONOCYTES ABSOLUTE COUNT (BEAKER) 1.13 K/ L 0.30-0.82 H (test code = 415) EOSINOPHILS ABSOLUTE COUNT 0.08 K/ L 0.04-0.54 (BEAKER) (test code = 416) BASOPHILS ABSOLUTE COUNT (BEAKER) 0.07 K/ L 0.01-0.08 (test code = 417) IMMATURE GRANULOCYTES-RELATIVE 1 % 0-1 PERCENT (BEAKER) (test code = 2801) COMPREHENSIVE METABOLIC [id number] 07:12:00 Test Item Value Reference Range Interpretation Comments TOTAL PROTEIN 7.0 gm/dL 6.0-8.3 (BEAKER) (test code = 770) ALBUMIN (BEAKER) 4.0 g/dL 3.5-5.0 (test code = 1145) ALKALINE PHOSPHATASE 43 U/L 40-150 (BEAKER) (test code = 346) BILIRUBIN TOTAL 0.7 mg/dL 0.2-1.2 (BEAKER) (test code = 377) SODIUM (BEAKER) (test 142 meq/L 136-145 code = 381) POTASSIUM (BEAKER) 3.9 meq/L 3.5-5.1 (test code = 379) CHLORIDE (BEAKER) 112 meq/L 98-107 H (test code = 382) CO2 (BEAKER) (test 21 meq/L 22-29 L code = 355) BLOOD UREA NITROGEN 30 mg/dL 7-21 H (BEAKER) (test code = 354) CREATININE (BEAKER) 0.88 mg/dL 0.57-1.25 (test code = 358) GLUCOSE RANDOM 110 mg/dL 70-105 H (BEAKER) (test code = 652) CALCIUM (BEAKER) 9.7 mg/dL 8.4-10.2 (test code = 697) AST (SGOT) (BEAKER) 16 U/L 5-34 (test code = 353) ALT (SGPT) (BEAKER) 14 U/L 6-55 (test code = 347) EGFR (BEAKER) (test 84 mL/min/1.73 ESTIMA RJ GFR IS code = 1092) sq m NOT ACCURATE CREATININE CLEARANCE IN PREDICTING GLOMERULAR FILTRATION RATE . ESTIMATED GFR I S NOT APPLICABLE FOR DIALYSIS PATIEN TS. CBC W/PLT COUNT & AUTO [id number] 06:42:00 Test Item Value Reference Range Interpretation Comments WHITE BLOOD CELL COUNT (BEAKER) 9.3 K/ L 3.5-10.5 (test code = 775) RED BLOOD CELL COUNT (BEAKER) 5.06 M/ L 4.63-6.08 (test code = 761) HEMOGLOBIN (BEAKER) (test code = 16.0 GM/DL 13.7-17.5 410) HEMATOCRIT (BEAKER) (test code = 45.2 % 40.1-51.0 411) MEAN CORPUSCULAR VOLUME (BEAKER) 89.3 fL 79.0-92.2 (test code = 753) MEAN CORPUSCULAR HEMOGLOBIN 31.6 pg 25.7-32.2 (BEAKER) (test code = 751) MEAN CORPUSCULAR HEMOGLOBIN CONC 35.4 GM/DL 32.3-36.5 (BEAKER) (test code = 752) RED CELL DISTRIBUTION WIDTH 12.8 % 11.6-14.4 (BEAKER) (test code = 412) PLATELET COUNT (BEAKER) (test 183 K/CU MM 150-450 code = 756) MEAN PLATELET VOLUME (BEAKER) 11.3 fL 9.4-12.4 (test code = 754) NUCLEATED RED BLOOD CELLS 0 /100 WBC 0-0 (BEAKER) (test code = 413) NEUTROPHILS RELATIVE PERCENT 69 % (BEAKER) (test code = 429) LYMPHOCYTES RELATIVE PERCENT 18 % (BEAKER) (test code = 430) MONOCYTES RELATIVE PERCENT 13 % (BEAKER) (test code = 431) EOSINOPHILS RELATIVE PERCENT 0 % (BEAKER) (test code = 432) BASOPHILS RELATIVE PERCENT 0 % (BEAKER) (test code = 437) NEUTROPHILS ABSOLUTE COUNT 6.36 K/ L 1.78-5.38 H (BEAKER) (test code = 670) LYMPHOCYTES ABSOLUTE COUNT 1.68 K/ L 1.32-3.57 (BEAKER) (test code = 414) MONOCYTES ABSOLUTE COUNT (BEAKER) 1.16 K/ L 0.30-0.82 H (test code = 415) EOSINOPHILS ABSOLUTE COUNT 0.01 K/ L 0.04-0.54 L (BEAKER) (test code = 416) BASOPHILS ABSOLUTE COUNT (BEAKER) 0.04 K/ L 0.01-0.08 (test code = 417) IMMATURE GRANULOCYTES-RELATIVE 0 % 0-1 PERCENT (BEAKER) (test code = 2801) COMPREHENSIVE METABOLIC [id number] 07:00:00 Test Item Value Reference Range Interpretation Comments TOTAL PROTEIN 7.0 gm/dL 6.0-8.3 (BEAKER) (test code = 770) ALBUMIN (BEAKER) 4.1 g/dL 3.5-5.0 (test code = 1145) ALKALINE PHOSPHATASE 44 U/L 40-150 (BEAKER) (test code = 346) BILIRUBIN TOTAL 0.7 mg/dL 0.2-1.2 (BEAKER) (test code = 377) SODIUM (BEAKER) (test 143 meq/L 136-145 code = 381) POTASSIUM (BEAKER) 3.6 meq/L 3.5-5.1 (test code = 379) CHLORIDE (BEAKER) 112 meq/L 98-107 H (test code = 382) CO2 (BEAKER) (test 21 meq/L 22-29 L code = 355) BLOOD UREA NITROGEN 22 mg/dL 7-21 H (BEAKER) (test code = 354) CREATININE (BEAKER) 0.93 mg/dL 0.57-1.25 (test code = 358) GLUCOSE RANDOM 110 mg/dL 70-105 H (BEAKER) (test code = 652) CALCIUM (BEAKER) 9.7 mg/dL 8.4-10.2 (test code = 697) AST (SGOT) (BEAKER) 18 U/L 5-34 (test code = 353) ALT (SGPT) (BEAKER) 14 U/L 6-55 (test code = 347) EGFR (BEAKER) (test 79 mL/min/1.73 ESTIMA RJ GFR IS code = 1092) sq m NOT ACCURATE CREATININE CLEARANCE IN PREDICTING GLOMERULAR FILTRATION RATE . ESTIMATED GFR I S NOT APPLICABLE FOR DIALYSIS PATIEN TS. CBC W/PLT COUNT & AUTO [id number] 06:32:00 Test Item Value Reference Range Interpretation Comments WHITE BLOOD CELL COUNT (BEAKER) 9.5 K/ L 3.5-10.5 (test code = 775) RED BLOOD CELL COUNT (BEAKER) 5.06 M/ L 4.63-6.08 (test code = 761) HEMOGLOBIN (BEAKER) (test code = 16.1 GM/DL 13.7-17.5 410) HEMATOCRIT (BEAKER) (test code = 46.0 % 40.1-51.0 411) MEAN CORPUSCULAR VOLUME (BEAKER) 90.9 fL 79.0-92.2 (test code = 753) MEAN CORPUSCULAR HEMOGLOBIN 31.8 pg 25.7-32.2 (BEAKER) (test code = 751) MEAN CORPUSCULAR HEMOGLOBIN CONC 35.0 GM/DL 32.3-36.5 (BEAKER) (test code = 752) RED CELL DISTRIBUTION WIDTH 13.1 % 11.6-14.4 (BEAKER) (test code = 412) PLATELET COUNT (BEAKER) (test 145 K/CU MM 150-450 L code = 756) MEAN PLATELET VOLUME (BEAKER) 11.2 fL 9.4-12.4 (test code = 754) NUCLEATED RED BLOOD CELLS 0 /100 WBC 0-0 (BEAKER) (test code = 413) NEUTROPHILS RELATIVE PERCENT 68 % (BEAKER) (test code = 429) LYMPHOCYTES RELATIVE PERCENT 16 % (BEAKER) (test code = 430) MONOCYTES RELATIVE PERCENT 14 % (BEAKER) (test code = 431) EOSINOPHILS RELATIVE PERCENT 1 % (BEAKER) (test code = 432) BASOPHILS RELATIVE PERCENT 1 % (BEAKER) (test code = 437) NEUTROPHILS ABSOLUTE COUNT 6.44 K/ L 1.78-5.38 H (BEAKER) (test code = 670) LYMPHOCYTES ABSOLUTE COUNT 1.56 K/ L 1.32-3.57 (BEAKER) (test code = 414) MONOCYTES ABSOLUTE COUNT (BEAKER) 1.29 K/ L 0.30-0.82 H (test code = 415) EOSINOPHILS ABSOLUTE COUNT 0.13 K/ L 0.04-0.54 (BEAKER) (test code = 416) BASOPHILS ABSOLUTE COUNT (BEAKER) 0.07 K/ L 0.01-0.08 (test code = 417) IMMATURE GRANULOCYTES-RELATIVE 0 % 0-1 PERCENT (BEAKER) (test code = 2801) [id number] 03:59:00 Test Item Value Reference Range Interpretation Comments MAGNESIUM (BEAKER) 2.3 mg/dL 1.6-2.6 Specimen slightly (test code = 627) hemolyzed [id number] 03:59:00 Test Item Value Reference Range Interpretation Comments PHOSPHORUS (BEAKER) 3.1 mg/dL 2.3-4.7 Specimen slightly (test code = 604) hemolyzed COMPREHENSIVE METABOLIC [id number] 03:59:00 Test Item Value Reference Range Interpretation Comments TOTAL PROTEIN 7.0 gm/dL 6.0-8.3 Specimen sligh tly (BEAKER) (test code = hemoly zed 770) ALBUMIN (BEAKER) 4.0 g/dL 3.5-5.0 Specimen sl ightly (test code = 1145) hemolyzed ALKALINE PHOSPHATASE 48 U/L 40-150 (BEAKER) (test code = 346) BILIRUBIN TOTAL 0.7 mg/dL 0.2-1.2 Specimen sli ghtly (BEAKER) (test code = hemoly zed 377) SODIUM (BEAKER) (test 143 meq/L 136-145 code = 381) POTASSIUM (BEAKER) 3.9 meq/L 3.5-5.1 Specimen slightly (test code = 379) hemolyzed CHLORIDE (BEAKER) 113 meq/L 98-107 H (test code = 382) CO2 (BEAKER) (test 21 meq/L 22-29 L code = 355) BLOOD UREA NITROGEN 21 mg/dL 7-21 (BEAKER) (test code = 354) CREATININE (BEAKER) 1.05 mg/dL 0.57-1.25 Specimen slightly (test code = 358) hemolyzed GLUCOSE RANDOM 120 mg/dL 70-105 H (BEAKER) (test code = 652) CALCIUM (BEAKER) 9.9 mg/dL 8.4-10.2 (test code = 697) AST (SGOT) (BEAKER) 28 U/L 5-34 Specimen slightly (test code = 353) hemolyzed ALT (SGPT) (BEAKER) 15 U/L 6-55 Specimen slightly (test code = 347) hemolyzed EGFR (BEAKER) (test 69 mL/min/1.73 ESTIMA RJ GFR IS code = 1092) sq m NOT ACCURATE CREATININE CLEARANCE IN PREDICTING GLOMERULAR FILTRATION RATE . ESTIMATED GFR I S NOT APPLICABLE FOR DIALYSIS PATIEN TS. CBC W/PLT COUNT & AUTO [id number] 03:43:00 Test Item Value Reference Range Interpretation Comments WHITE BLOOD CELL COUNT (BEAKER) 10.7 K/ L 3.5-10.5 H (test code = 775) RED BLOOD CELL COUNT (BEAKER) 4.76 M/ L 4.63-6.08 (test code = 761) HEMOGLOBIN (BEAKER) (test code = 15.3 GM/DL 13.7-17.5 410) HEMATOCRIT (BEAKER) (test code = 43.1 % 40.1-51.0 411) MEAN CORPUSCULAR VOLUME (BEAKER) 90.5 fL 79.0-92.2 (test code = 753) MEAN CORPUSCULAR HEMOGLOBIN 32.1 pg 25.7-32.2 (BEAKER) (test code = 751) MEAN CORPUSCULAR HEMOGLOBIN CONC 35.5 GM/DL 32.3-36.5 (BEAKER) (test code = 752) RED CELL DISTRIBUTION WIDTH 12.9 % 11.6-14.4 (BEAKER) (test code = 412) PLATELET COUNT (BEAKER) (test 166 K/CU MM 150-450 code = 756) MEAN PLATELET VOLUME (BEAKER) 11.1 fL 9.4-12.4 (test code = 754) NUCLEATED RED BLOOD CELLS 0 /100 WBC 0-0 (BEAKER) (test code = 413) NEUTROPHILS RELATIVE PERCENT 73 % (BEAKER) (test code = 429) LYMPHOCYTES RELATIVE PERCENT 13 % (BEAKER) (test code = 430) MONOCYTES RELATIVE PERCENT 12 % (BEAKER) (test code = 431) EOSINOPHILS RELATIVE PERCENT 1 % (BEAKER) (test code = 432) BASOPHILS RELATIVE PERCENT 1 % (BEAKER) (test code = 437) NEUTROPHILS ABSOLUTE COUNT 7.84 K/ L 1.78-5.38 H (BEAKER) (test code = 670) LYMPHOCYTES ABSOLUTE COUNT 1.38 K/ L 1.32-3.57 (BEAKER) (test code = 414) MONOCYTES ABSOLUTE COUNT (BEAKER) 1.29 K/ L 0.30-0.82 H (test code = 415) EOSINOPHILS ABSOLUTE COUNT 0.10 K/ L 0.04-0.54 (BEAKER) (test code = 416) BASOPHILS ABSOLUTE COUNT (BEAKER) 0.05 K/ L 0.01-0.08 (test code = 417) IMMATURE GRANULOCYTES-RELATIVE 0 % 0-1 PERCENT (BEAKER) (test code = 2801) MR, BRAIN, WITHOUT [id number] 02:57:00FINAL REPORT MR, BRAIN, WITHOUT CONTRAST INDICATION: Stroke TECHNIQUE: Multiplanar, multisequence MR imaging of the brain was obtained. COMPARISON: CT brain January 17, 2019 FINDINGS: Degenerative hyperintensity with decreased signal on ADC and FLAIR hyperintensity within the right centrum semiovale and right lentiform nucleus, compatible with acute infarct. Remote infarct in theleft temporal lobe. Brain parenchyma is normal in morphology. Midline structures are normally developed. Scattered T2/FLAIR hyperintense foci within the periventricular and subcortical white matter are nonspecific, however, statistically represent chronic microvascular ischemic changes. No hydrocephalus. Orbits are within normal limits. No obstructive paranasal sinus disease. Calvarium and skull base demonstrate marrow signal within normal limits for age without focal lesion. Additional findings: None. 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 No evidence of hemorrhagic transformation. No significant mass effect. Remote infarct of the left temporal lobe Signed: Farrah Dhillon MDReport Verified Date/Time: 01/18/2019 02:57:54 Reading Location: [facility] [id number] Neuro Reading Room LIPID [id number] 13:07:00 Test Item Value Reference Range Interpretation Comments TRIGLYCERIDES (BEAKER) (test code = 158 mg/dL 540) CHOLESTEROL (BEAKER) (test code = 155 mg/dL 631) HDL CHOLESTEROL (BEAKER) (test code 37 mg/dL = 976) LDL CHOLESTEROL CALCULATED (BEAKER) 86 mg/dL (test code = 633) Triglyceride Reference Range: Low Risk <150 Borderline 150-199 High Risk 200-499 Very High Risk >=500Cholesterol Reference Range: Low Risk <200 Borderline 200-239 High Risk >240HDL Cholesterol Reference Range: Low Risk >=60 High Risk <40LDL Cholesterol Reference Range: Optimal <100 Near Optimal 100-129 Borderline 130-159 High 160-189 Very High >=190HEMOGLOBIN [id number] 12:44:00 Test Item Value Reference Range Interpretation Comments HEMOGLOBIN A1C (BEAKER) (test code = 5.4 % 4.3-6.1 368) [id number] 09:02:00 Test Item Value Reference Range Interpretation Comments PHOSPHORUS (BEAKER) (test code = 2.5 mg/dL 2.3-4.7 604) [id number] 09:02:00 Test Item Value Reference Range Interpretation Comments MAGNESIUM (BEAKER) (test code = 2.1 mg/dL 1.6-2.6 627) COMPREHENSIVE METABOLIC [id number] 09:02:00 Test Item Value Reference Range Interpretation Comments TOTAL PROTEIN 6.6 gm/dL 6.0-8.3 (BEAKER) (test code = 770) ALBUMIN (BEAKER) 4.1 g/dL 3.5-5.0 (test code = 1145) ALKALINE PHOSPHATASE 43 U/L 40-150 (BEAKER) (test code = 346) BILIRUBIN TOTAL 0.5 mg/dL 0.2-1.2 (BEAKER) (test code = 377) SODIUM (BEAKER) (test 143 meq/L 136-145 code = 381) POTASSIUM (BEAKER) 3.9 meq/L 3.5-5.1 (test code = 379) CHLORIDE (BEAKER) 113 meq/L 98-107 H (test code = 382) CO2 (BEAKER) (test 23 meq/L 22-29 code = 355) BLOOD UREA NITROGEN 20 mg/dL 7-21 (BEAKER) (test code = 354) CREATININE (BEAKER) 1.05 mg/dL 0.57-1.25 (test code = 358) GLUCOSE RANDOM 126 mg/dL 70-105 H (BEAKER) (test code = 652) CALCIUM (BEAKER) 9.5 mg/dL 8.4-10.2 (test code = 697) AST (SGOT) (BEAKER) 27 U/L 5-34 (test code = 353) ALT (SGPT) (BEAKER) 16 U/L 6-55 (test code = 347) EGFR (BEAKER) (test 69 mL/min/1.73 ESTIMA RJ GFR IS code = 1092) sq m NOT ACCURATE CREATININE CLEARANCE IN PREDICTING GLOMERULAR FILTRATION RATE . ESTIMATED GFR I S NOT APPLICABLE FOR DIALYSIS PATIEN TS. CT, BRAIN, WITHOUT [id number] 07:06:00FINAL REPORT CT, BRAIN, WITHOUT CONTRAST CLINICAL INDICATION: Stroke COMPARISON: None TECHNIQUE: Noncontrast axial CT imaging of the brain and skull. DOSE REDUCTION: Dose modulation, iterative reconstruction, and/or weight-based adjustment of the mA/kV was utilized to reduce the radiation dose to as low as reasonably achievable. FINDINGS:No intracranial hemorrhage, midline shift or mass effect. Midline structures are normally developed. Mild chronic microvascular ischemic changes of the periventricular and subcortical white matter are present. Remote-appearing infarct of the left temporal lobe. Ill- defined hypoattenuation within the right centrum semiovale. Absence of thecorpus callosum with colpocephaly. Ventricles are prominent, however, no definite evidence of hydrocephalus. Orbits are within normal limits. No obstructive paranasal sinus disease. IMPRESSION: No intracranial hemorrhage. Per review of the electronic medical record, patient is status post TPA administration. There is remote appearing infarct within the left temporal lobe. There is an age-indeterminate but remote appearing infarct of the right centrum semiovale. No definite acute infarct identified. If there is persistent clinical concern for intracranial pathology, MR examination is recommended for further characterization. Signed: Farrah Dhillon MDReport Verified Date/Time: 01/17/2019 07:06:33 Reading Location: [facility] [id number] Neuro Reading Room CBC W/PLT COUNT & AUTO [id number] 04:18:00 Test Item Value Reference Range Interpretation Comments WHITE BLOOD CELL COUNT (BEAKER) 9.0 K/ L 3.5-10.5 (test code = 775) RED BLOOD CELL COUNT (BEAKER) 4.82 M/ L 4.63-6.08 (test code = 761) HEMOGLOBIN (BEAKER) (test code = 15.2 GM/DL 13.7-17.5 410) HEMATOCRIT (BEAKER) (test code = 44.4 % 40.1-51.0 411) MEAN CORPUSCULAR VOLUME (BEAKER) 92.1 fL 79.0-92.2 (test code = 753) MEAN CORPUSCULAR HEMOGLOBIN 31.5 pg 25.7-32.2 (BEAKER) (test code = 751) MEAN CORPUSCULAR HEMOGLOBIN CONC 34.2 GM/DL 32.3-36.5 (BEAKER) (test code = 752) RED CELL DISTRIBUTION WIDTH 13.2 % 11.6-14.4 (BEAKER) (test code = 412) PLATELET COUNT (BEAKER) (test 161 K/CU MM 150-450 code = 756) MEAN PLATELET VOLUME (BEAKER) 11.7 fL 9.4-12.4 (test code = 754) NUCLEATED RED BLOOD CELLS 0 /100 WBC 0-0 (BEAKER) (test code = 413) NEUTROPHILS RELATIVE PERCENT 65 % (BEAKER) (test code = 429) LYMPHOCYTES RELATIVE PERCENT 22 % (BEAKER) (test code = 430) MONOCYTES RELATIVE PERCENT 11 % (BEAKER) (test code = 431) EOSINOPHILS RELATIVE PERCENT 1 % (BEAKER) (test code = 432) BASOPHILS RELATIVE PERCENT 1 % (BEAKER) (test code = 437) NEUTROPHILS ABSOLUTE COUNT 5.83 K/ L 1.78-5.38 H (BEAKER) (test code = 670) LYMPHOCYTES ABSOLUTE COUNT 2.00 K/ L 1.32-3.57 (BEAKER) (test code = 414) MONOCYTES ABSOLUTE COUNT (BEAKER) 0.98 K/ L 0.30-0.82 H (test code = 415) EOSINOPHILS ABSOLUTE COUNT 0.07 K/ L 0.04-0.54 (BEAKER) (test code = 416) BASOPHILS ABSOLUTE COUNT (BEAKER) 0.07 K/ L 0.01-0.08 (test code = 417) IMMATURE GRANULOCYTES-RELATIVE 0 % 0-1 PERCENT (BEAKER) (test code = 2801) COMPREHENSIVE METABOLIC [id number] 13:24:00 Test Item Value Reference Range Interpretation Comments TOTAL PROTEIN 6.8 gm/dL 6.0-8.3 (BEAKER) (test code = 770) ALBUMIN (BEAKER) 4.2 g/dL 3.5-5.0 (test code = 1145) ALKALINE PHOSPHATASE 55 U/L 40-150 (BEAKER) (test code = 346) BILIRUBIN TOTAL 0.4 mg/dL 0.2-1.2 (BEAKER) (test code = 377) SODIUM (BEAKER) (test 142 meq/L 136-145 code = 381) POTASSIUM (BEAKER) 3.8 meq/L 3.5-5.1 (test code = 379) CHLORIDE (BEAKER) 110 meq/L 98-107 H (test code = 382) CO2 (BEAKER) (test 24 meq/L 22-29 code = 355) BLOOD UREA NITROGEN 22 mg/dL 7-21 H (BEAKER) (test code = 354) CREATININE (BEAKER) 1.04 mg/dL 0.57-1.25 (test code = 358) GLUCOSE RANDOM 125 mg/dL 70-105 H (BEAKER) (test code = 652) CALCIUM (BEAKER) 9.3 mg/dL 8.4-10.2 (test code = 697) AST (SGOT) (BEAKER) 14 U/L 5-34 (test code = 353) ALT (SGPT) (BEAKER) 12 U/L 6-55 (test code = 347) EGFR (BEAKER) (test 69 mL/min/1.73 ESTIMA RJ GFR IS code = 1092) sq m NOT ACCURATE CREATININE CLEARANCE IN PREDICTING GLOMERULAR FILTRATION RATE . ESTIMATED GFR I S NOT APPLICABLE FOR DIALYSIS PATIEN TS. CBC W/PLT COUNT & AUTO [id number] 12:01:00 Test Item Value Reference Range Interpretation Comments WHITE BLOOD CELL COUNT (BEAKER) 7.8 K/ L 3.5-10.5 (test code = 775) RED BLOOD CELL COUNT (BEAKER) 5.05 M/ L 4.63-6.08 (test code = 761) HEMOGLOBIN (BEAKER) (test code = 16.0 GM/DL 13.7-17.5 410) HEMATOCRIT (BEAKER) (test code = 46.6 % 40.1-51.0 411) MEAN CORPUSCULAR VOLUME (BEAKER) 92.3 fL 79.0-92.2 H (test code = 753) MEAN CORPUSCULAR HEMOGLOBIN 31.7 pg 25.7-32.2 (BEAKER) (test code = 751) MEAN CORPUSCULAR HEMOGLOBIN CONC 34.3 GM/DL 32.3-36.5 (BEAKER) (test code = 752) RED CELL DISTRIBUTION WIDTH 13.1 % 11.6-14.4 (BEAKER) (test code = 412) PLATELET COUNT (BEAKER) (test 162 K/CU MM 150-450 code = 756) MEAN PLATELET VOLUME (BEAKER) 11.2 fL 9.4-12.4 (test code = 754) NUCLEATED RED BLOOD CELLS 0 /100 WBC 0-0 (BEAKER) (test code = 413) NEUTROPHILS RELATIVE PERCENT 77 % (BEAKER) (test code = 429) LYMPHOCYTES RELATIVE PERCENT 15 % (BEAKER) (test code = 430) MONOCYTES RELATIVE PERCENT 7 % (BEAKER) (test code = 431) EOSINOPHILS RELATIVE PERCENT 0 % (BEAKER) (test code = 432) BASOPHILS RELATIVE PERCENT 1 % (BEAKER) (test code = 437) NEUTROPHILS ABSOLUTE COUNT 6.02 K/ L 1.78-5.38 H (BEAKER) (test code = 670) LYMPHOCYTES ABSOLUTE COUNT 1.15 K/ L 1.32-3.57 L (BEAKER) (test code = 414) MONOCYTES ABSOLUTE COUNT (BEAKER) 0.53 K/ L 0.30-0.82 (test code = 415) EOSINOPHILS ABSOLUTE COUNT 0.02 K/ L 0.04-0.54 L (BEAKER) (test code = 416) BASOPHILS ABSOLUTE COUNT (BEAKER) 0.05 K/ L 0.01-0.08 (test code = 417) IMMATURE GRANULOCYTES-RELATIVE 1 % 0-1 PERCENT (BEAKER) (test code = 2801)
[2020-04-17] MEDS ORDERED: NA CHLORIDE 0.9% 2,000 ML ONE (00:57)
[2020-04-17] MEDS ORDERED: NA CHLORIDE 0.9% 500 ML ONE (00:57)
[2020-04-17 01:40] LABS: Absolute Lymphocytes (CBC) 0.9 K/uL (0.7-4.9); Basophils % 0.4 % (0-1.3); Hematocrit 41.6 % (39.6-49.0); RBC Red Blood Cell Count 4.92 M/uL (4.33-5.43)
[2020-04-17 01:42] LABS: Protime INR 2.51
[2020-04-17 02:14] LABS: Albumin 3.5 g/dL (3.4-5.0); Bilirubin Direct 0.3 mg/dL (0-0.2); Bilirubin Total 1.1 mg/dL (0.2-1.0); CKMB Creatine Kinase MB 7.6 ng/mL (0.3-3.6); Potassium 3.6 mmol/L (3.5-5.1); Protein, Total 7.2 g/dL (6.4-8.2)
[2020-04-17 02:15] LABS: Troponin (Emerg Dept Use Only) 5.01 ng/mL (0.0-0.045)
[2020-04-17 02:28] LABS: Blood Morphology Comment NOT SEEN (NOT SEEN); Platelet Estimate ADEQ
[2020-04-17 02:31] LABS: Urine Blood 2+ (NEG); Urine Glucose NEGATIVE (NEG); Urine Protein NEGATIVE (NEG); Urine Specific Gravity 1.025 (1.005-1.030); Urine pH 5.5 (5.0-7.0)
[2020-04-17 02:33] LABS: Urine Bacteria <20 /HPF (NONE SEEN); Urine Culture Reflex Order NOT NEEDED; Urine Urothelial Cells <5 /HPF (NONE SEEN)
[2020-04-17] MEDS ORDERED: CEFTRIAXONE/SWI 1gm 1 GM/10 ML SYR ONE ×3 (03:17→21:14)
--- NOTE | 2020-04-17 03:56 | EDPHYS ---
Physician Documentation [facility] Name: Paz Crews Age: 79 yrs Sex: Male : 1940 Arrival Date: 04/17/2020 Time: 00:37 Bed 6 Private MD: ED Physician Aravind Lai HPI: 04/17 00:43 This 79 yrs old Male presents to ER via EMS with complaints of Fever. mh7 00:43 The patient reports fever, that was measured at 102.9 degrees Fahrenheit. Onset: The mh7 symptoms/episode began/occurred yesterday. Modifying factors: nursing facility patient. Associated signs and symptoms: Pertinent positives: cough, decreased appetite, Pertinent negatives: abdominal pain, altered mental status, arthralgias, backache, chest pain, chills, diarrhea, pulling at ears, earache, headache, hemoptysis, myalgias, nausea, night sweats, runny nose, sinus congestion, sinus drainage, skin rash, shortness of breath, sore throat, swelling, vomiting. Severity of symptoms: At their worst the symptoms were moderate yesterday, in the emergency department the symptoms have improved moderately. Patient sent from nursing facility due fever that started yesterday morning. He has received Tylenol and Ibuprofen intermittently with improvement. He has had a non productive cough but denies any headache, chest pain, abdominal pain, SOB, dysuria, numbness/tingling, or new extremity weakness.. Historical: - Allergies: 00:35 No Known Allergies; rr5 - Home Meds: 03:37 tylenol [Active]; amlodipine 5 mg tab 1 tab once daily [Active]; baclofen 10 mg Oral rr5 tab 1 tab once a day [Active]; vitamin b12 500mcg OD [Active]; Eliquis 5 mg oral tab 1 tab 2 times per day [Active]; lisinopril 5 mg Oral tab 1 tab once daily [Active]; mylanta 20mg PRN [Active]; Pepto-Bismol Oral [Active]; simvastatin 20 mg Oral tab 1 tab at night [Active]; trazodone 50 mg Oral tab 1 tab at night [Active]; voltaren 1 % OD [Active]; Miralax Oral [Active]; Miralax Oral [Active]; rocephin [Active]; - PMHx: 00:35 CVA; High Cholesterol; Hypertension; rr5 01:56 hemiplagia; cognitive communication deficit; SINA; Anxiety; vitamin b12 deficiency; rr5 Sleep Apnea; liver cirrhosis; - PSHx: 01:56 abscess tendon sheath left thigh; rr5 - Immunization history:: Adult Immunizations up to date. - Social history:: Smoking status: unknown Patient/guardian denies using alcohol, street drugs. ROS: 00:43 Eyes: Negative for injury, pain, redness, and discharge, ENT: Negative for injury, mh7 pain, and discharge, Neck: Negative for injury, pain, and swelling, Cardiovascular: Negative for chest pain, palpitations, and edema, Abdomen/GI: Negative for abdominal pain, nausea, vomiting, diarrhea, and constipation, Back: Negative for injury and pain, : Negative for injury, bleeding, discharge, and swelling, MS/Extremity: Negative for injury and deformity, Skin: Negative for injury, rash, and discoloration, Neuro: Negative for headache, weakness, numbness, tingling, and seizure, Psych: Negative for depression, anxiety, suicide ideation, homicidal ideation, and hallucinations, Allergy/Immunology: Negative for hives, rash, and allergies, Endocrine: Negative for neck swelling, polydipsia, polyuria, polyphagia, and marked weight changes, Hematologic/Lymphatic: Negative for swollen nodes, abnormal bleeding, and unusual bruising. Exam: 00:43 Constitutional: This is a well developed, well nourished patient who is awake, alert, mh7 and in no acute distress. Head/Face: Normocephalic, atraumatic. Eyes: Pupils equal round and reactive to light, extra-ocular motions intact. Lids and lashes normal. Conjunctiva and sclera are non-icteric and not injected. Cornea within normal limits. Periorbital areas with no swelling, redness, or edema. ENT: Nares patent. No nasal discharge, no septal abnormalities noted. Tympanic membranes are normal and external auditory canals are clear. Oropharynx with no redness, swelling, or masses, exudates, or evidence of obstruction, uvula midline. Mucous membranes moist. Neck: Trachea midline, no thyromegaly or masses palpated, and no cervical lymphadenopathy. Supple, full range of motion without nuchal rigidity, or vertebral point tenderness. No Meningismus. Chest/axilla: Normal chest wall appearance and motion. Nontender with no deformity. No lesions are appreciated. Cardiovascular: Regular rate and rhythm with a normal S1 and S2. No gallops, murmurs, or rubs. Normal PMI, no JVD. No pulse deficits. Respiratory: Lungs have equal breath sounds bilaterally, clear to auscultation and percussion. No rales, rhonchi or wheezes noted. No increased work of breathing, no retractions or nasal flaring. Abdomen/GI: Soft, non-tender, with normal bowel sounds. No distension or tympany. No guarding or rebound. No evidence of tenderness throughout. Back: No spinal tenderness. No costovertebral tenderness. Full range of motion. Skin: Warm, dry with normal turgor. Normal color with no rashes, no lesions, and no evidence of cellulitis. 00:43 Psych: Awake, alert, with orientation to person, place and time. Behavior, mood, and affect are within normal limits. 00:43 Musculoskeletal/extremity: Extremities: all appear grossly normal, with no appreciated pain with palpation, ROM: Left Hemiparesis, Circulation is intact in all extremities. the left arm and left leg decreased sensation, Compartment Syndrome exam of affected extremity: is normal. no pain. 00:43 Neuro: Orientation: is normal, Mentation: is normal, Memory: is normal, Cranial nerves: CN II- XII are normal as tested, Cerebellar function: unable to test, Left Hemiparesis, Motor: strength is 5/5 in the right arm and right leg, Strength is 1/5 in the left arm and left leg, Sensation: Decreased left upper and lower extremity sensation, Gait: not tested. seizure activity, is not displayed by the patient, Abnormal movements: there are no abnormal movements. 06:05 ECG was reviewed by the Attending Physician. [facility] Vital Signs: 00:35 BP 104 / 81; Pulse 93; Resp 24; Temp 98.2; Pulse Ox 94% ; Weight 83.91 kg; Height 5 ft. rr5 9 in. (175.26 cm); 01:43 BP 109 / 71; Pulse 93; Resp 20; Pulse Ox 94% ; rr5 02:38 BP 113 / 77; Pulse 89; Resp 18; Pulse Ox 97% on R/A; rr5 03:40 BP 114 / 71; Pulse 85; Resp 19; Temp 98.5; Pulse Ox 98% ; rr5 05:00 BP 126 / 75; Pulse 97; Resp 17; Pulse Ox 98% on R/A; rr5 06:00 BP 110 / 65; Pulse 99; Resp 19; Temp 98.4; Pulse Ox 97% on R/A; rr5 00:35 Body Mass Index 27.32 (83.91 kg, 175.26 cm) rr5 MDM: 00:40 Patient medically screened. [facility] 03:52 Differential diagnosis: viral Infection, bacterial infection, URI, bronchitis, 7 pneumonia UTI. Data reviewed: vital signs, nurses notes, EMS record, [facility] records, old medical records, lab test result(s), CBC, electrolytes, Flu: urinalysis, EKG, radiologic studies, CT scan, plain films. Data interpreted: scratch polisher: rate is 85 beats/min, Pulse oximetry: on room air is 98 %. Interpretation: normal. Counseling: I had a detailed discussion with the patient and/or guardian regarding: the historical points, exam findings, and any diagnostic results supporting the discharge/admit diagnosis, lab results, radiology results, the need for further work-up and treatment in the hospital. Response to treatment: the patient's symptoms have markedly improved after treatment. 03:55 Differential diagnosis: COVID 19. [facility] 04/17 00:42 Order name: Amylase, Serum 04/17 00:42 Order name: Basic Metabolic Panel 04/17 00:42 Order name: Blood Culture Adult (2) 04/17 00:42 Order name: CBC with Diff; Complete Time: 02:35 04/17 00:42 Order name: Ckmb; Complete Time: 02:16 04/17 00:42 Order name: CPK; Complete Time: 02:16 04/17 00:42 Order name: Lactate; Complete Time: 02:01 04/17 00:42 Order name: LFT's; Complete Time: 02:16 04/17 00:42 Order name: Lipase; Complete Time: 02:16 04/17 00:42 Order name: Procalcitonin; Complete Time: 02:35 04/17 00:42 Order name: Protime (+inr); Complete Time: 01:55 04/17 00:42 Order name: Ptt, Activated; Complete Time: 01:55 5 04/17 00:42 Order name: Troponin (emerg Dept Use Only); Complete Time: 02:16 5 04/17 00:42 Order name: Urine Microscopic Only; Complete Time: 02:35 5 04/17 00:43 Order name: Amylase; Complete Time: 02:16 [facility] 04/17 00:43 Order name: Basic Metabolic Panel; Complete Time: 02:16 [facility] 04/17 00:49 Order name: COVID-19 5 04/17 00:49 Order name: Flu; Complete Time: 03:45 5 04/17 00:49 Order name: Strep; Complete Time: 03:45 [facility] 04/17 01:52 Order name: Urine Dipstick--Ancillary (enter results); Complete Time: 02:35 [facility] 04/17 01:56 Order name: Manual Differential; Complete Time: 02:35 [facility] 04/17 03:11 Order name: Throat Culture [facility] 04/17 05:31 Order name: Comprehensive Metabolic Panel [facility] 04/17 05:31 Order name: Comprehensive Metabolic Panel [facility] 04/17 05:31 Order name: Lipid Profile [facility] 04/17 05:31 Order name: Lipid Profile [facility] 04/17 05:31 Order name: Magnesium [facility] 04/17 05:31 Order name: Magnesium [facility] 04/17 05:31 Order name: Phosphorus [facility] 04/17 05:31 Order name: Phosphorus [facility] 04/17 00:42 Order name: Chest Single View XRAY [facility] 04/17 00:42 Order name: Accucheck; Complete Time: 01:36 04/17 00:42 Order name: Cardiac monitoring; Complete Time: 01:36 5 04/17 00:42 Order name: EKG - Nurse/Tech; Complete Time: 01:36 5 04/17 00:42 Order name: IV Saline Lock - Large Bore; Complete Time: 01:37 5 04/17 00:42 Order name: Labs collected and sent; Complete Time: 01:37 5 04/17 00:42 Order name: O2 Per Protocol; Complete Time: 01:37 [facility] 04/17 02:22 Order name: CT Chest Abdomen Pelvis W/O Contrast [facility] 04/17 02:34 Order name: CT Head Brain wo Cont mh7 04/17 05:31 Order name: Troponin I [facility] 04/17 05:32 Order name: CONS Physician Consult [facility] 04/17 05:32 Order name: NPO [facility] 04/17 05:32 Order name: Echo with Doppler [facility] 04/17 05:32 Order name: EKG Electrocardiogram [facility] 04/17 05:32 Order name: EKG Electrocardiogram [facility] 04/17 05:32 Order name: EKG Electrocardiogram [facility] 04/17 05:32 Order name: EKG Electrocardiogram [facility] 04/17 05:32 Order name: PTT, Activated Partial Thromb [facility] 04/17 05:32 Order name: PTT, Activated Partial Thromb [facility] 04/17 05:32 Order name: PTT, Activated Partial Thromb [facility] 04/17 05:32 Order name: PTT, Activated Partial Thromb [facility] 04/17 05:32 Order name: PTT, Activated Partial Thromb [facility] 04/17 14:53 Order name: CBC with Automated Diff [facility] 04/17 14:53 Order name: Lactate [facility] 04/17 15:17 Order name: Comprehensive Metabolic Panel [facility] 04/17 15:17 Order name: Troponin I [facility] 04/17 15:20 Order name: Procalcitonin [facility] 04/17 15:22 Order name: CBC Smear Scan [facility] 04/18 00:13 Order name: Potassium [facility] 04/17 00:42 Order name: O2 Sat Monitoring; Complete Time: 01:37 rr5 04/17 00:42 Order name: Urine Dipstick-Ancillary (obtain specimen); Complete Time: 01:37 rr5 04/17 02:37 Order name: EKG - Nurse/Tech; Complete Time: 02:37 rr5 EC:05 Rate is 94 beats/min. Rhythm is regular, Normal Sinus Rhythm with Right bundle branch mh7 block. QRS [place] is Normal. DE interval is normal. QRS interval is normal. QT interval is normal. No Q waves. T waves are Normal. ST Segment is depressed in leads V3, V4, V5. Clinical impression: Abnormal EKG without significant change. Administered Medications: 01:15 Drug: NS 0.9% (30 ml/kg) 30 ml/kg Route: IV; Rate: bolus; Site: right forearm; rr5 04:26 Follow up: Response: No adverse reaction; IV Status: Completed infusion; IV Intake: rr5 2500ml 03:00 Drug: Rocephin 1 grams - ((cefTRIAXone) 1 grams, NS 0.9% 50 ml) Route: IVPB; Infused rr5 Over: 30 mins; Site: right forearm; 03:30 Follow up: Response: No adverse reaction; IV Status: Completed infusion; IV Intake: [id number] 03:55 Dru mg of (AZITHromycin 500 mg, NS 0.9% 250 ml) Route: IVPB; Infused Over: 1 hrs; rr5 Site: right forearm; 04:50 Follow up: Response: No adverse reaction; IV Status: Completed infusion; IV Intake: rr5 250ml Disposition: 04/17/20 03:55 Hospitalization ordered by Duncan East for Observation. Preliminary diagnosis are Febrile Illness, Leukocytosis, Elevated Troponin Level. - Bed requested for Telemetry/MedSurg (observation). - Status is Observation. mg2 - Condition is Stable. - Problem is new. - Symptoms have improved. Signatures: Dispatcher [employer] EDKarolyn Freeman RN RN Brent Dowell RN RN [facility] Tacho Savage RN RN rr5 Aravind Lai MD MD mh7 Corrections: (The following items were deleted from the chart) 05:17 03:55 Hospitalization Ordered by Duncan East MD for Observation. Preliminary cg diagnosis is Febrile Illness; Leukocytosis; Elevated Troponin Level. Bed requested for Telemetry/MedSurg (observation). Status is Observation. Condition is Stable. Problem is new. Symptoms have improved. [facility] 05:17 05:17 04/17/2020 03:55 Hospitalization Ordered by Duncan East MD for Observation. cg Preliminary diagnosis is Febrile Illness; Leukocytosis; Elevated Troponin Level. Bed requested for [facility] ER HOLD. Status is Observation. Condition is Stable. Problem is new. Symptoms have improved. 04/18 01:38 04/17 05:17 04/17/2020 03:55 Hospitalization Ordered by Duncan East MD for cg Observation. Preliminary diagnosis is Febrile Illness; Leukocytosis; Elevated Troponin Level. Bed requested for [facility] ER HOLD. Status is Observation. Condition is Stable. Problem is new. Symptoms have improved. 04/18 03:04 01:38 04/17/2020 03:55 Hospitalization Ordered by Duncan East MD for Observation. mg2 Preliminary diagnosis is Febrile Illness; Leukocytosis; Elevated Troponin Level. Bed requested for Telemetry/MedSurg (observation). Status is Observation. Condition is Stable. Problem is new. Symptoms have improved. cg
--- NOTE | 2020-04-17 03:56 | ER ---
Nurse's Notes [facility] Name: Paz Crews Age: 79 yrs Sex: Male : 1940 Arrival Date: 04/17/2020 Time: 00:37 Bed 6 Private MD: Diagnosis: Febrile Illness;Leukocytosis;Elevated Troponin Level Presentation: 04/17 00:35 Chief complaint: EMS states: patient complaining of fever started today T 102 F, rr5 lethargic, weak and feel nauseous. 00:35 Method Of Arrival: EMS: [facility] rr5 00:35 Coronavirus screen: Patient reports a cough. Patient reports a measured and/or rr5 subjective temperature greater than 100.4F. 00:35 Ebola Screen: Patient negative for fever greater than or equal to 101.5 degrees rr5 Fahrenheit, and additional compatible Ebola Virus Disease symptoms Patient denies exposure to infectious person. Patient denies travel to an Ebola-affected area in the 21 days before illness onset. Initial Sepsis Screen: Does the patient meet any 2 criteria? RR > 20 per min. HR > 90 bpm. Yes Does the patient have a suspected source of infection? Yes: Productive cough/pneumonia. Risk Assessment: Do you want to hurt yourself or someone else? Patient reports no desire to harm self or others. Onset of symptoms was April 17, 2020. Care prior to arrival: Medication(s) given: Motrin, given by [facility] Tylenol. Transition of care: patient was received from another setting of care (long-term care facility), [facility]. 00:35 Acuity: THELMA 2 rr5 Historical: - Allergies: 00:35 No Known Allergies; rr5 - Home Meds: 03:37 tylenol [Active]; amlodipine 5 mg tab 1 tab once daily [Active]; baclofen 10 mg Oral rr5 tab 1 tab once a day [Active]; vitamin b12 500mcg OD [Active]; Eliquis 5 mg oral tab 1 tab 2 times per day [Active]; lisinopril 5 mg Oral tab 1 tab once daily [Active]; mylanta 20mg PRN [Active]; Pepto-Bismol Oral [Active]; simvastatin 20 mg Oral tab 1 tab at night [Active]; trazodone 50 mg Oral tab 1 tab at night [Active]; voltaren 1 % OD [Active]; Miralax Oral [Active]; Miralax Oral [Active]; rocephin [Active]; - PMHx: 00:35 CVA; High Cholesterol; Hypertension; rr5 01:56 hemiplagia; cognitive communication deficit; SINA; Anxiety; vitamin b12 deficiency; rr5 Sleep Apnea; liver cirrhosis; - PSHx: 01:56 abscess tendon sheath left thigh; rr5 - Immunization history:: Adult Immunizations up to date. - Social history:: Smoking status: unknown Patient/guardian denies using alcohol, street drugs. Screenin:38 Abuse screen: Denies threats or abuse. Denies injuries from another. Nutritional rr5 screening: No deficits noted. Tuberculosis screening: No symptoms or risk factors identified. Fall Risk Secondary diagnosis (15 points) impaired mobility, CVA, IV access (20 points). Gait- Normal/Bed Rest/Wheelchair (0 pts) Total Joy Fall Scale indicates High Risk Score (45 or more points). Fall prevention measures have been instituted. Side Rails Up X 2 Placed Close to Nursing Station Frequent Obs/Assessments Occuring As available patient and family educated on Fall Prevention Program and Strategies. Assessment: 00:30 Reassessment: Patient appears in no apparent distress at this time. Patient is alert, rr5 oriented x 3, equal unlabored respirations, skin warm/dry/pink. awaiting for test results. General: Appears in no apparent distress. uncomfortable, Behavior is calm, cooperative, Reports fever for feeling ill for fatigue for. Pain: Denies pain. Neuro: Level of Consciousness is awake, alert, obeys commands, Oriented to person, place, time, situation. Cardiovascular: Capillary refill < 3 seconds Patient's skin is warm and dry. Respiratory: Reports cough that is dry, Airway is patent Respiratory effort is even, unlabored, Respiratory pattern is regular, symmetrical, tachypnea. GI: Abdomen is flat, non-distended, Reports nausea. : No signs and/or symptoms were reported regarding the genitourinary system. EENT: No signs and/or symptoms were reported regarding the EENT system. Derm: Skin is fragile, is thin, Skin temperature is warm. Musculoskeletal: Capillary refill < 3 seconds, Reports weakness in left arm and left leg. 01:50 Reassessment: Patient appears in no apparent distress at this time. Patient is alert, rr5 oriented x 3, equal unlabored respirations, skin warm/dry/pink. awaiting for results. 02:20 Reassessment: teetee made to [facility] to fax the packet, spoke to wei staff from [address] 02:38 Reassessment: Patient appears in no apparent distress at this time. turned o side lying rr5 checked the back skin is intact. reassess by ED provider. 03:30 Reassessment: Patient appears in no apparent distress at this time. No changes from rr5 previously documented assessment. Patient is alert, oriented x 3, equal unlabored respirations, skin warm/dry/pink. 04:30 Reassessment: Patient appears in no apparent distress at this time. Patient is alert, rr5 oriented x 3, equal unlabored respirations, skin warm/dry/pink. eyes closed breathing spontaneously at room air. 05:30 Reassessment: Patient appears in no apparent distress at this time. Patient is alert, rr5 oriented x 3, equal unlabored respirations, skin warm/dry/pink. positive BM large in amount. soft to watery consistency. 06:00 Reassessment: Patient appears in no apparent distress at this time. Patient is alert, rr5 oriented x 3, equal unlabored respirations, skin warm/dry/pink. admitted under ER hold Patient states feeling better. Patient states symptoms have improved. Vital Signs: 00:35 BP 104 / 81; Pulse 93; Resp 24; Temp 98.2; Pulse Ox 94% ; Weight 83.91 kg; Height 5 ft. rr5 9 in. (175.26 cm); 01:43 BP 109 / 71; Pulse 93; Resp 20; Pulse Ox 94% ; rr5 02:38 BP 113 / 77; Pulse 89; Resp 18; Pulse Ox 97% on R/A; rr5 03:40 BP 114 / 71; Pulse 85; Resp 19; Temp 98.5; Pulse Ox 98% ; rr5 05:00 BP 126 / 75; Pulse 97; Resp 17; Pulse Ox 98% on R/A; rr5 06:00 BP 110 / 65; Pulse 99; Resp 19; Temp 98.4; Pulse Ox 97% on R/A; rr5 00:35 Body Mass Index 27.32 (83.91 kg, 175.26 cm) rr5 ED Course: 00:35 Arm band placed on left wrist. rr5 00:37 Patient arrived in ED. rr5 00:40 Aravind Lai MD is Attending Physician. mh7 00:40 Patient has correct armband on for positive identification. Placed in gown. Bed in low rr5 position. Call light in reach. Side rails up X2. telegrapher agent on. Pulse ox on. NIBP on. 00:40 Head of bed elevated. rr5 00:43 Tacho Savage, RN is Primary Nurse. rr5 00:45 Triage completed. rr5 00:55 EKG done, by ED staff, reviewed by Aravind Lai MD. rr5 01:00 Flu and/or RSV swab sent to lab. Strep swab sent to lab. covid. rr5 01:15 Initial lab(s) drawn, by in, sent to lab. First set of blood cultures drawn by me. rr5 01:15 Inserted saline lock: 20 gauge in right forearm, using aseptic technique. Blood rr5 collected. 01:30 Chest Single View XRAY In Process Unspecified. EDMS 01:35 Second set of blood cultures drawn by me. rr5 01:37 No provider procedures requiring assistance completed. rr5 01:37 Urine collected: straight cath specimen, clear. rr5 02:15 Notified ED physician of a critical lab result(s). troponin of 5.01. jd3 02:36 EKG done, by ED staff, reviewed by Aravind Lai MD. rr5 02:59 CT Head Brain wo Cont In Process Unspecified. EDMS 03:08 CT Chest Abdomen Pelvis W/O Contrast In Process Unspecified. EDMS 03:53 Duncan East MD is Hospitalizing Provider. mh7 06:10 Patient admitted, IV remains in place. intact, No redness/swelling at site. rr5 08:39 Primary Nurse role handed off by Tacho Savage, [employer] sv 08:39 Ruth Ann Cramer, [employer] is Primary Nurse. sv Administered Medications: 01:15 Drug: NS 0.9% (30 ml/kg) 30 ml/kg Route: IV; Rate: bolus; Site: right forearm; rr5 04:26 Follow up: Response: No adverse reaction; IV Status: Completed infusion; IV Intake: rr5 2500ml 03:00 Drug: Rocephin 1 grams - ((cefTRIAXone) 1 grams, NS 0.9% 50 ml) Route: IVPB; Infused rr5 Over: 30 mins; Site: right forearm; 03:30 Follow up: Response: No adverse reaction; IV Status: Completed infusion; IV Intake: [id number] 03:55 Dru mg of (AZITHromycin 500 mg, NS 0.9% 250 ml) Route: IVPB; Infused Over: 1 hrs; rr5 Site: right forearm; 04:50 Follow up: Response: No adverse reaction; IV Status: Completed infusion; IV Intake: rr5 250ml Intake: 02:00 PO: 120ml (Water); Total: 120ml. rr5 03:30 IV: 50ml; Total: 170ml. rr5 03:30 PO: 120ml (Water); Total: 290ml. rr5 04:26 IV: 2500ml; Total: 2790ml. rr5 04:50 IV: 250ml; Total: 3040ml. rr5 06:00 PO: 240ml (Water); Total: 3280ml. rr5 05:30 large in amount soft to watery, brown rr5 Output: 05:30 Stool: 1 (Loose Stool) ; Total: 0ml. rr5 05:30 large in amount soft to watery, brown rr5 Outcome: 03:55 Decision to Hospitalize by Provider. [facility] 06:10 Admitted to ER Hold. Please see [facility] for further documentation. rr5 06:10 Condition: stable 06:10 Instructed on the need for admit. rr5 04/18 03:04 Patient left the ED. mg2 Signatures: Dispatcher [employer] Ruth Ann Macario RN RN sv Davies, Jonathon, RN RN jd3 Brent Dowell RN RN mg2 Tacho Savage RN RN rr5 Aravind Lai MD MD 7
[2020-04-17] MEDS ORDERED: NA CHLORIDE 0.9% 250 ML ONE (04:26)
[2020-04-17] MEDS ORDERED: AZITHROMYCIN 500 MG INJ IVPB ONE (04:26)
[2020-04-17] MEDS ORDERED: ACETAMINOPHEN 500 MG TAB PO PRN (05:25)
[2020-04-17] MEDS ORDERED: MORPHINE 4 MG/ML SYR IV PRN (05:25)
[2020-04-17] MEDS ORDERED: HYDROCODONE/APAP 5/325 MG TAB PO PRN (05:25)
[2020-04-17] MEDS ORDERED: METOPROLOL TAR 50 MG TAB PO SCH (06:00)
[2020-04-17] MEDS: CLOPIDOGREL 75 MG TABLET PO SCH ×2 (06:00→09:00)
[2020-04-17] MEDS ORDERED: METOPROLOL TAR 25 MG TAB ONE ×2 (07:21→17:28)
--- NOTE | 2020-04-17 08:28 | RAD REPORT ---
EXAM DESCRIPTION: RAD - Chest Single View - 04/17/2020 1:30 am CLINICAL HISTORY: FEVER Chest pain. COMPARISON: Chest Single View dated 01/16/2019; Chest Abd Pelvis Wo Con dated 04/17/2020 FINDINGS: Portable technique limits examination quality. The lungs are grossly clear. The heart is normal in size. No displaced fractures.Trace left pleural e ffusion. IMPRESSION: No acute intrathoracic process suspected.
[2020-04-17] MEDS ORDERED: ASPIRIN 325 MG TAB ONE (08:43)
[2020-04-17] MEDS ORDERED: ACETAMINOPHEN 500 MG TAB ONE (08:43)
[2020-04-17] MEDS: ASPIRIN 325 MG TAB PO SCH (09:00)
[2020-04-17] MEDS ORDERED: HEPARIN/D5W 25,000 UNIT/500 ML BAG IV ONE (09:22)
[2020-04-17] MEDS: HEPARIN/D5W 25,000 UNIT/500 ML BAG IV SCH (09:28)
--- NOTE | 2020-04-17 11:35 | P.HP ---
Certification for Inpatient Patient admitted to: Inpatient () With expected LOS: >2 Midnights (the) Patient will require the following post-hospital care: None Practitioner: I am a practitioner with admitting privileges, knowledge of patient current condition, hospital course, and medical plan of care. Services: Services provided to patient in accordance with Admission requirements found in Title 42 Section 412.3 of the Code of Federal Regulations Patient History Date of Service: 04/17/20 Reason for admission: patient was sent from shelter because of fever of 102 History of Present Illness: Patient is a 79-year-old gentleman who came into the hospital because he was having fevers at [facility]. Patient denies any other complaints. He ended up in [facility] after suffering a stroke. This left him fairly debilitated. Patient had been doing well and he states he has not had any visitors at the nursing facility. Does not really go out of his room either. The facility was concerned after he had his fever that he may have COVID-19. Patient will be admitted to the hospital for further evaluation. While in the emergency room patient's lab revealed his troponin was also elevated. This may be related to a viral myocarditis. Will get an echocardiogram and cardiology consultation. I will go ahead and initially start him on heparin along with anti-platelet therapy and statin therapy. EKG will be repeated as well. Patient will be admitted for inpatient hospitalization. Allergies No Known Allergies Allergy (Verified 04/17/20 07:38) - Past Medical/Surgical History -: Stroke Past Surgical History: Patient denies surgical history - Family History Father Family History: Reviewed- Non-Contributory - Social History Smoking Status: Former smoker Alcohol use: No CD- Drugs: No Review of Systems 10-point ROS is otherwise unremarkable Physical Examination - Vital Signs Temperature: 98 F Blood Pressure: 140/80 Pulse: 88 Respirations: 18 Pulse Ox (%): 95 - Physical Exam General: Alert, In no apparent distress, Oriented x3 HEENT: Atraumatic, PERRLA, Mucous membr. moist/pink, EOMI, Sclerae nonicteric Neck: Supple, 2+ carotid pulse no bruit, No LAD, Without JVD or thyroid abno rmality Respiratory: Clear to auscultation bilaterally, Normal air movement Cardiovascular: Regular rate/rhythm, Normal S1 S2, No murmurs Gastrointestinal: Normal bowel sounds, Soft and benign, Non-distended, No tenderness, No rebound, No guarding Musculoskeletal: No clubbing, No swelling, No tenderness Integumentary: No rashes Neurological: Normal speech, Normal tone, Cranial nerves 3-12 intact, Normal affect, Abnormal gait, Abnormal strength Lymphatics: No axilla or inguinal lymphadenopathy - Studies Laboratory Data (last 24 hrs) 04/17/20 01:18: PT 29.1 H, INR 2.51, APTT 41.5 H 04/17/20 01:18: WBC 14.6 H, Hgb 14.0, Hct 41.6, Plt Count 115 L 04/17/20 01:18: Sodium 141, Potassium 3.6, BUN 26 H, Creatinine 1.36 H, Glucose 128 H, Total Bilirubin 1.1 H, AST 38 H, ALT 28, Alkaline Phosphatase 60, Amylase 25, Lipase 65 L Microbiology Data (last 24 hrs): 04/17/20 01:01 Nasopharnyx Influenza Type A Antigen Screen - Final 04/17/20 01:01 Nasopharnyx Influenza Type B Antigen Screen - Final 04/17/20 01:01 Throat Group A Streptococcus Rapid Screen - Final Assessment & Plan - Problems (Diagnosis) (1) Fever Current Visit: Yes Status: Acute (2) Stroke Current Visit: Yes Status: Acute - Plan 1. Serial troponins and EKG 2. Cardiology consultation 3. Echocardiogram 4. Anti-platelet therapy, anti coagulation, beta-mar, statin, and O2 as needed 5. IV morphine for pain 6. IV antibiotics pending culture results and COVID-19 testing 7. GI prophylaxis - Advance Directives Does patient have a Living Will: No Does patient have a Durable POA for Healthcare: Yes - Code Status/Comfort Care Code Status Assessed: No Code Status: Full Code Critical Care: No Time Spent Managing PTS Care (In Minutes): 45
[2020-04-17] MEDS: CEFTRIAXONE/SWI 1gm 1 GM/10 ML SYR IV SCH ×2 (11:51→21:00)
--- NOTE | 2020-04-17 14:14 | CON ---
Date of Consultation: 04/17/2020 Reason For Consultation: Elevated troponin. History Of Present Illness: Mr. Crews is a 79-year-old male, has had a history of atrial fibrillati on, hypertension, dyslipidemia. He takes Eliquis at home. He has had a history of CVA in the past. He came into the emergency room with a temperature of a 103[place] [address], elevated procalcitonin. Workup is still pending regarding the etiology of his fever. His troponin was 5.01. His INR is 2.51. Creatinine is 1.36. There is no chest pain was reported. Denied PND, orthopnea, pedal edema, palpitations, or syncope. Past Medical History: As stated above. Allergies: NONE. Review of Systems: Negative. Social History: Negative. Family History: Noncontributory. Medications: At home include Eliquis, lisinopril, Norvasc, and Zocor. Physical Examination: Vital Signs: Stable. T-max was 103, sinus rhythm. HEENT: Negative. Neck: Supple, no bruit. Chest: Clear. Cardiac: Exam revealed a regular rhythm and rate. No murmurs, gallops, or rubs. Abdomen: Benign. Extremities: Revealed no clubbing, cyanosis, or edema. Diagnostic Data: Stated as earlier chest x-ray is pending. Impression And Plan: Elevated troponin probably secondary to sepsis and infection. He has no chest pain. His EKG showed no acute changes. His troponin is 5.01. His INR is elevated. He is definitel y not a candidate right now for catheterization or coronary intervention. An echocardiogram is pendi miesha and I agree with that with Shadia. His other problems including hypertension, dyslipide annamaria and history of cerebrovascular accident are stable at this point. I will continue to follow him. NB/MODL Voice ID: [id number] Report ID: [id number]
[2020-04-17 14:51] LABS: Absolute Lymphocytes (CBC) 0.7 K/uL (0.7-4.9); Basophils % 0.3 % (0-1.3); Hematocrit 41.9 % (39.6-49.0); Lymphocytes % 5.8 % (15.3-44.8); MPV 9.8 fL (7.6-11.3); RBC Red Blood Cell Count 4.88 M/uL (4.33-5.43)
[2020-04-17 15:13] LABS: Albumin 3.2 g/dL (3.4-5.0); Bilirubin Total 0.8 mg/dL (0.2-1.0); Potassium 3.4 mmol/L (3.5-5.1); Protein, Total 7.1 g/dL (6.4-8.2)
[2020-04-17 15:16] LABS: Troponin I 4.49 ng/mL (0.0-0.045)
[2020-04-17 15:21] LABS: Blood Morphology Comment NOT SEEN (NOT SEEN); Platelet Estimate DECR; Urine White Blood Cell Casts OK
[2020-04-17 15:58] VITALS: BMI 27.0
[2020-04-17] MEDS ORDERED: POTASSIUM CL SA 10 MEQ TAB PO ONE ×2 (17:00→17:28)
[2020-04-17] MEDS: METOPROLOL TAR 25 MG TAB PO SCH (17:58)
[2020-04-17] MEDS: ATORVASTATIN 40 MG TAB PO SCH (21:00)
[2020-04-17] MEDS ORDERED: ATORVASTATIN 20 MG TAB ONE (21:14)
[2020-04-18 04:17] LABS: Absolute Lymphocytes (CBC) 0.6 K/uL (0.7-4.9); Basophils % 2.9 % (0-1.3); Hematocrit 39.9 % (39.6-49.0); Lymphocytes % 6.7 % (15.3-44.8); MPV 10.5 fL (7.6-11.3); RBC Red Blood Cell Count 4.67 M/uL (4.33-5.43)
[2020-04-18 04:31] LABS: Protime INR 2.12
[2020-04-18 04:51] LABS: Albumin 2.9 g/dL (3.4-5.0); Bilirubin Total 0.5 mg/dL (0.2-1.0); Phosphorus 2.5 mg/dL (2.5-4.9); Potassium 3.1 mmol/L (3.5-5.1); Protein, Total 6.6 g/dL (6.4-8.2)
[2020-04-18 05:04] LABS: Blood Morphology Comment NOT SEEN (NOT SEEN); Platelet Estimate ADEQ
[2020-04-18 05:06] LABS: Thyroid Stimulating Hormone 0.21 uIU/mL (0.360-3.740)
[2020-04-18 05:10] LABS: Troponin I 6.1 ng/mL (0.0-0.045)
[2020-04-18] MEDS: METOPROLOL TAR 25 MG TAB PO SCH ×2 (07:23→17:15)
--- NOTE | 2020-04-18 07:48 | EKG ---
Test Date: 2020-04-17 Test Time: 00:58:54 Inside Contractor Sales: BRAEDEN MEASUREMENT RESULTS: Intervals: Rate: 94 VT: 180 QRSD: 140 QT: 412 QTc: 515 [place]: P: 58 VT: 180 QRS: -75 T: 25 INTERPRETIVE STATEMENTS: Sinus rhythm with premature atrial complexes with aberrant conduction Possible Left atrial enlargement Right bundle branch block Left anterior fascicular block Bifascicular block Inferior infarct, age undetermined Abnormal ECG Compared to ECG 01/16/2019 07:12:26 Atrial premature complex(es) now present Aberrant conduction of supraventricular beat(s) now present Left anterior fascicular block now present Bifascicular block now present Myocardial infarct finding now present First degree AV block no longer present Electronically Signed On 04-18-20 07:44:57 CDT by Kt Topete
--- NOTE | 2020-04-18 07:48 | EKG ---
Test Date: 2020-04-17 Test Time: 02:34:58 Mammography Technologist: BRAEDEN MEASUREMENT RESULTS: Intervals: Rate: 86 RI: 176 QRSD: 144 QT: 400 QTc: 478 [place]: P: 72 RI: 176 QRS: 61 T: -70 INTERPRETIVE STATEMENTS: Sinus rhythm with premature supraventricular complexes Right bundle branch block T wave abnormality, consider inferior ischemia Abnormal ECG Compared to ECG 04/17/2020 00:58:54 T-wave abnormality now present Possible ischemia now present Aberrant conduction of supraventricular beat(s) no longer present Left anterior fascicular block no longer present Bifascicular block no longer present Myocardial infarct finding no longer present Electronically Signed On 04-18-20 07:44:56 CDT by Kt Topete
--- NOTE | 2020-04-18 08:09 | RAD REPORT ---
EXAM DESCRIPTION: CT HEAD WITHOUT IV CONTRAST CLINICAL HISTORY: WEAKNESS TECHNIQUE: Contiguous axial CT images obtained through the brain without IV contrast. Coronal and sa gittal reformatted images were provided. This exam was performed according to our departmental dose-optimization program, which includes autom ated exposure control, adjustment of the mA and/or kV according to patient size and/or use of iterati ve reconstruction technique. COMPARISON: None available for comparison FINDINGS: Brain: There is mild cerebral atrophy. Bilateral periventricular and subcortical white mat ter hypodensity most likely related to chronic microvascular angiopathy. Left temporal encephalomalac ia compatible with remote insult. Right winter radiata CSF density focus most compatible with remote lacunar infarct. No focal mass effect. Gandhi-white matter differentiation is within normal limits. No hemorrhage. Ventricles: Borderline ventricular prominence compared with degree of parenchymal volume loss. Extra-axial spaces: No extra-axial collection or hemorrhage. Paranasal sinuses and mastoid air cells: Minimal opacification of the left mastoid air cells. Vessels: There is atherosclerotic disease of the internal carotid and vertebral arteries bilaterally. Bones: Unremarkable Soft tissues: Unremarkable IMPRESSION: 1. No acute hemorrhage, focal mass or acute large territory infarction. 2. Borderline ventricular prominence compared with degree of parenchymal volume loss. Prominent neli tral ventricles may be secondary to central cortical atrophy versus normal pressure hydrocephalus. 3. Other findings as above. Electronically signed by: Ross Etienne MD 04/17/2020 3:10 AM CDT Due to temporary technical issues with the PACS/Fluency reporting system, reports are being signed by the in house radiologist without review as a courtesy to ensure prompt reporting. The interpreting r adiologist is fully responsible for the content of the report.
--- NOTE | 2020-04-18 08:10 | RAD REPORT ---
EXAM DESCRIPTION: CT CHEST ABDOMEN PELVIS WITHOUT IV CONTRAST CLINICAL HISTORY: FEVER COMPARISON: None Available TECHNIQUE: Multiple helical axial tomographic images were obtained of the chest, abdomen, and pelvis without intravenous contrast. Coronal and sagittal reformatted images were obtained. This exam was performed according to our departmental dose-optimization program, which includes autom ated exposure control, adjustment of the mA and/or kV according to patient size and/or use of iterati ve reconstruction technique. FINDINGS: Chest: Thyroid gland: unremarkable. Axilla: unremarkable. Aorta: Aortic atherosclerosis is present. No evidence of aortic aneurysm. Mediastinum: Unremarkable. No adenopathy. Heart: Heart is normal in size. Coronary artery atherosclerosis demonstrated. Lungs/airways: No consolidation. Airways are patent. Mild atelectasis in the posterior left lower lob e noted. Pleural spaces: Small left pleural effusion is demonstrated. No pneumothorax. Osseous: Unremarkable. Soft tissues: Unremarkable. Abdomen and pelvis: Liver: Homogenous attenuation is demonstrated. Gallbladder/biliary: Gallbladder appears unremarkable. No calcified gallstones. No evidence of biliar y ductal dilatation. Pancreas: Unremarkable. Spleen: Unremarkable. Adrenals: Unremarkable. Kidneys and ureters: No evidence of renal or ureteral stones. No hydronephrosis. Several rounded hypo densities suggestive of cysts in both kidneys are present measuring up to 2.2 cm. There are a few rou nded hyperdensities in both kidneys measuring up to 2.5 cm suggestive of proteinaceous or hemorrhagic cysts. Bladder: Unremarkable. Pelvic organs: Unremarkable. Bowel: Scattered fluid in the colon noted. No evidence of bowel obstruction. No bowel wall thickening . Appendix appears normal. Peritoneum: No free air. No significant free fluid. Lymph nodes: Unremarkable. Vasculature: Aortoiliac atherosclerosis is present. Soft tissues: Unremarkable. Bones: Degenerative changes of the lumbar spine are present. IMPRESSION: 1. Small left pleural effusion. 2. No obvious acute process in the abdomen or pelvis. 3. Nonspecific colonic fluid which can be seen with diarrheal illness. Electronically signed by: Brant Herrera MD 04/17/2020 3:31 AM CDT Due to temporary technical issues with the PACS/Fluency reporting system, reports are being signed by the in house radiologist without review as a courtesy to ensure prompt reporting. The interpreting r adiologist is fully responsible for the content of the report.
[2020-04-18] MEDS ORDERED: SENOSIDES 8.6 MG TAB PO SCH (09:00)
[2020-04-18] MEDS ORDERED: KCL 20 MEQ/100 mL IVPB 20 MEQ/100 ML BAG IV SCH (09:00)
[2020-04-18] MEDS: CEFTRIAXONE/SWI 1gm 1 GM/10 ML SYR IV SCH ×2 (10:16→20:29)
[2020-04-18] MEDS: CLOPIDOGREL 75 MG TABLET PO SCH (10:16)
[2020-04-18] MEDS: AMLODIPINE 5 MG TAB PO SCH (10:17)
[2020-04-18] MEDS: BACLOFEN 10 MG TAB PO SCH (10:17)
[2020-04-18] MEDS: lisinopriL 5 MG TAB PO SCH (10:17)
[2020-04-18] MEDS: CYANOCOBALAMIN 1,000 MCG TAB PO SCH (10:17)
[2020-04-18] MEDS: ASPIRIN 325 MG TAB PO SCH (10:17)
[2020-04-18] MEDS: HEPARIN/D5W 25,000 UNIT/500 ML BAG IV SCH (14:08)
[2020-04-18] MEDS: ATORVASTATIN 40 MG TAB PO SCH (20:29)
[2020-04-18] MEDS ORDERED: HOME MED 1 EA UNK (Simvastatin [Simvastatin] 20 MG) PO SCH (21:00)
[2020-04-18] MEDS ORDERED: TRAZODONE 50 MG TABLET PO SCH (21:00)
--- NOTE | 2020-04-19 01:46 | PN ---
Date of Progress Note: 04/18/2020 Mr. Crews had come in with fever, elevated white count, elevated troponin, elevated INR. He is now off Eliquis, on heparin. He has much improved since he has come in. He is afebrile. His white coun t is down. His troponin remained stable. Echocardiogram is still pending. Again, I feel his elevat ed troponin is secondary to his infection. His EKG did not show any acute changes. He did not reall y have any chest pain. Once he is done with his treatment, we will plan to do an outpatient Lexiscan on him from my standpoint. Otherwise, he can go home whenever it is okay with admitting physician. GENNA/LARYL Voice ID: [id number] Report ID: [id number]
[2020-04-19 03:40] VITALS: O2SAT 96
[2020-04-19] MEDS: METOPROLOL TAR 25 MG TAB PO SCH (05:28)
[2020-04-19 06:51] LABS: BUN Blood Urea Nitrogen 26 mg/dL (7-18); Bicarbonate 22 mmol/L (21-32); Glucose Level 109 mg/dL (74-106); Sodium Level 143 mmol/L (136-145)
[2020-04-19 06:57] LABS: Potassium 2.7 mmol/L (3.5-5.1)
--- NOTE | 2020-04-19 07:26 | EKG ---
Test Date: 2020-04-18 Test Time: 09:17:22 Student Loan Counselor: RICK MEASUREMENT RESULTS: Intervals: Rate: 81 NV: 170 QRSD: 148 QT: 406 QTc: 471 [place]: P: 61 NV: 170 QRS: 72 T: -31 INTERPRETIVE STATEMENTS: Sinus rhythm with premature supraventricular complexes and fusion complexes Right bundle branch block T wave abnormality, consider inferior ischemia Abnormal ECG Compared to ECG 04/17/2020 02:34:58 Fusion complex(es) now present T-wave abnormality still present Possible ischemia still present Electronically Signed On 04-19-20 07:23:34 CDT by Kt Topete
--- NOTE | 2020-04-19 08:47 | ECHO ---
HEIGHT: 5 ft 6 in WEIGHT: 200 lb 0 oz DATE OF STUDY: 04/18/[address]: Duncan East MD 2-DIMENSIONAL: YES M.MODE: YES DOPPLER: YES COLOR FLOW: YES TDS: YES PORTABLE: NO DEFINITY: NO BUBBLE STUDY: NO DIAGNOSIS: ACUTE CORONARY SYNDROME CARDIAC HISTORY: CATHERIZATION: NO SURGERY: NO PROSTHETIC VALVE: NO PACEMAKER: NO MEASUREMENTS (cm) DIASTOLIC (NORMALS) SYSTOLIC (NORMALS) IVSd 1.0 (0.6-1.2) LA Diam 3.2 (1.9-4.0) LVEF 64% LVIDd 4.9 (3.5-5.7) LVIDs 3.2 (2.0-3.5) %FS 35% LVPWd 1.1 (0.6-1.2) Ao Diam 2.9 (2.0-3.7) 2 DIMENSIONAL ASSESSMENT: RIGHT ATRIUM: NORMAL LEFT ATRIUM: NORMAL RIGHT VENTRICLE: NORMAL LEFT VENTRICLE: NORMAL TRICUSPID VALVE: NORMAL MITRAL VALVE: NORMAL PULMONIC VALVE: NORMAL AORTIC VALVE: NORMAL PERICARDIAL EFFUSION: NONE AORTIC ROOT: NORMAL LEFT VENTRICULAR WALL MOTION: NORMAL DOPPLER/COLOR FLOW: NORMAL COMMENTS: TECHNICALLY DIFFICULT STUDY. GROSSLY NORMAL LEFT VENTRICULAR EJECTION FRACTION. NO EFFUSION. NO WALL MOTION ABNORMALITY. TECHNOLOGIST: Brooke RENEE
[2020-04-19] MEDS ORDERED: POTASSIUM CL SA 10 MEQ TAB PO ONE (09:00)
[2020-04-19] MEDS: AMLODIPINE 5 MG TAB PO SCH (09:23)
[2020-04-19] MEDS: CLOPIDOGREL 75 MG TABLET PO SCH (09:23)
[2020-04-19] MEDS: lisinopriL 5 MG TAB PO SCH (09:24)
[2020-04-19] MEDS: ASPIRIN 325 MG TAB PO SCH (09:24)
[2020-04-19] MEDS: CEFTRIAXONE/SWI 1gm 1 GM/10 ML SYR IV SCH (09:24)
[2020-04-19] MEDS: BACLOFEN 10 MG TAB PO SCH (09:24)
[2020-04-19] MEDS: CYANOCOBALAMIN 1,000 MCG TAB PO SCH (09:24)
--- NOTE | 2020-04-19 11:30 | P.PN ---
Subjective Date of Service: 04/18/20 Subjective: Improving patient continues to do well with no new complaints. No fever overnight. No chest pain. He has not had any palpitations. He is wanting to possibly go home. Cardiology is agreeable that he can possibly go home with outpatient stress testing. Anticipate discharge home in the morning Review of Systems 10-point ROS is otherwise unremarkable Physical Examination - Vital Signs Temperature: 98.1 F Blood Pressure: 123/83 Pulse: 74 Respirations: 18 Pulse Ox (%): 95 - Physical Exam General: Alert, In no apparent distress, Oriented x3 Respiratory: Clear to auscultation bilaterally, Normal air movement Cardiovascular: Regular rate/rhythm, Normal S1 S2 Gastrointestinal: Normal bowel sounds, No tenderness Musculoskeletal: No tenderness Integumentary: No rashes Neurological: Normal speech, Sensation intact, Normal affect Lymphatics: No axilla or inguinal lymphadenopathy - Studies Microbiology Data (last 24 hrs): 04/17/20 01:01 Throat Culture & Sensitivity - Final NORMAL UPPER RESPIRATORY JONH GROWN. Medications List Reviewed: Yes Assessment & Plan - Problems (Diagnosis) (1) Fever Current Visit: Yes Status: Acute (2) Stroke Current Visit: Yes Status: Acute (3) Elevated troponin Current Visit: Yes Status: Acute (4) Myocarditis Current Visit: Yes Status: Acute - Plan continue with plan of care as mentioned below: 1. Serial troponins and EKG 2. Cardiology consultation Appreciated 3. Echocardiogram pending 4. Anti-platelet therapy, anti coagulation, beta-mar, statin, and O2 as needed 5. IV morphine for pain 6. IV antibiotics pending culture results and COVID-19 testing 7. GI prophylaxis - Advance Directives Does patient have a Living Will: No Does patient have a Durable POA for Healthcare: Yes - Code Status/Comfort Care Code Status: Full Code
[2020-04-19 13:43] VITALS: BP 136/87; TEMP 97.6
--- NOTE | 2020-04-19 15:28 | PN ---
Date of Progress Note: 04/19/2020 Subjective: Mr. Crews had come in with sepsis, troponin of 6.1. No chest pain. His sepsis has imp roved. Echocardiogram that was done yesterday is normal. Again, he has no cardiac symptoms. He was taking amiodarone and Eliquis at home for chronic atrial fibrillation. Today, he remains in AFIb, r ate controlled. His creatinine is 0.88. He remains on antibiotics. He is afebrile. His echocardio gram as mentioned earlier showed no wall motion abnormalities. His ejection fraction was normal. I still believe his troponin was secondary to his sepsis. It is concerning enough that I would like hi m to do an outpatient stress test after he gets discharged. Otherwise, I agree with his present jeremy kc. GENNA/ANKIT Voice ID: [id number] Report ID: [id number]
--- NOTE | 2020-04-28 04:09 | P.DS ---
Discharge Date: 04/19/20 Disposition: TRANSFER TO SKILLED NURSING Discharge Condition: GOOD Reason for Admission: patient was sent from retirement because of fever of 102 - Problems (1) Fever Status: Acute (2) Stroke Status: Acute (3) Elevated troponin Status: Acute (4) Myocarditis Status: Acute Brief History of Present Illness: Patient is a 79-year-old gentleman who came into the hospital because he was having fevers at [facility]. Patient denies any other complaints. He ended up in [facility] after suffering a stroke. This left him fairly debilitated. Patient had been doing well and he states he has not had any visitors at the nursing facility. Does not really go out of his room either. The facility was concerned after he had his fever that he may have COVID-19. Patient will be admitted to the hospital for further evaluation. Amanda ibarra in the emergency room patient's lab revealed his troponin was also elevated. This may be related to a viral myocarditis. Will get an echocardiogram and cardiology consultation. I will go ahead and initially start him on heparin along with anti-platelet therapy and statin therapy. EKG will be repeated as well. Patient will be admitted for inpatient hospitalization. Hospital Course: Patient has done well during hospital stay. Pts cardiac enzymes were elevated including troponin level. Patient's chest pain resolved. It is felt that patient may have a viral myocarditis. Patient will continue to follow as an outpatient with cardiology. Return to the Emergency room if symptoms worsen. Vital Signs/Physical Exam: Temp Pulse Resp BP Pulse Ox 97.6 F 79 18 136/87 96 04/19/20 12:00 04/19/20 12:00 04/19/20 12:00 04/19/20 12:00 04/19/20 12:00 General: Alert, In no apparent distress Laboratory Data at Discharge: WBC 8.8 K/uL (4.3-10.9) D 04/18/20 03:45 Hgb 13.5 g/dL (13.6-17.9) L 04/18/20 03:45 Hct 39.9 % (39.6-49.0) 04/18/20 03:45 Plt Count 97 K/uL (152-406) L 04/18/20 03:45 PT 24.6 SECONDS (9.5-12.5) H 04/18/20 03:45 INR 2.12 04/18/20 03:45 APTT 44.0 SECONDS (24.3-36.9) H 04/19/20 06:06 Sodium 143 mmol/L (136-145) 04/19/20 05:48 Potassium 2.7 mmol/L (3.5-5.1) L* 04/19/20 05:48 BUN 26 mg/dL (7-18) H 04/19/20 05:48 Creatinine 0.66 mg/dL (0.55-1.3) 04/19/20 05:48 Glucose 109 mg/dL (74-106) H 04/19/20 05:48 Phosphorus 2.5 mg/dL (2.5-4.9) 04/18/20 03:45 Magnesium 2.3 mg/dL (1.8-2.4) 04/19/20 06:06 Total Bilirubin 0.5 mg/dL (0.2-1.0) 04/18/20 03:45 AST 37 U/L (15-37) 04/18/20 03:45 ALT 26 U/L (12-78) 04/18/20 03:45 Alkaline Phosphatase 47 U/L (45-117) 04/18/20 03:45 Troponin I 6.10 ng/mL (0.0-0.045) H* 04/18/20 03:45 Triglycerides 83 mg/dL (<150) 04/18/20 03:45 Cholesterol 98 mg/dL (<200) 04/18/20 03:45 HDL Cholesterol 50 mg/dL (40-60) 04/18/20 03:45 Cholesterol/HDL Ratio 1.96 04/18/20 03:45 Amylase 25 U/L (25-115) 04/17/20 01:18 Lipase 65 U/L (73-393) L 04/17/20 01:18 Home Medications: Amlodipine [Norvasc*] 5 mg PO DAILY 04/17/20 Apixaban [Eliquis] 5 mg PO BID 04/17/20 Baclofen 10 mg PO DAILY 04/17/20 Cyanocobalamin (Vitamin B-12) [Vitamin B-12] 500 mcg PO DAILY 04/17/20 Lisinopril [Zestril] 5 mg PO DAILY 04/17/20 Sennosides [Senna] 8.6 mg PO DAILY 04/17/20 Trazodone [Desyrel*] 50 mg PO BEDTIME 04/17/20 Atorvastatin Calcium [Lipitor] 40 mg PO BEDTIME #30 tab 04/19/20 Metoprolol Tartrate [Lopressor*] 25 mg PO BID 6AM 6PM #60 tab 04/19/20 Potassium Chloride [K-Dur] 20 meq PO DAILY #7 tab.er.prt 04/19/20 New Medications: Potassium Chloride [K-Dur] 20 meq PO DAILY #7 tab.er.prt Atorvastatin Calcium [Lipitor] 40 mg PO BEDTIME #30 tab Metoprolol Tartrate [Lopressor*] 25 mg PO BID 6AM 6PM #60 tab Patient Discharge Instructions: OK TO DC IV AND DC HOME. FOLLOW-UP WITH PRIMARY CARE PROVIDER IN 1-2 WEEKS. FOLLOW-UP WITH CARDIOLOGY IN 1-2 WEEKS; CARDIOLOGY IS RECOMMENDING OUTPATIENT STRESS TEST. RETURN TO THE ER IF SYMPTOMS WORSEN. PLEASE HAVE SKILLED NURSING CHECK LABS-ESPECIALLY POTASSIUM LEVEL ON THURSDAY APRIL 23, 2020[address] CALL DR. MATAMOROS AT [phone] IF ANY QUESTIONS REGARDING HOSPITAL STAY. PLEASE CALL THE FLOOR AT [phone] IF ANY MEDICATION OR NURSING QUESTIONS. Diet: AHA Activity: Fall precautions Time spent managing pt's care (in minutes): 20
== END 2020-04-19 15:33 | DRG 871 ==
LOC: ER 00:25 → ERHOLD 05:36 → 2ND 04-18 02:29
PROVIDERS: ADMIT Hospitalist; ATTEND Hospitalist
DX: A41.9 Sepsis, unspecified organism (principal); I40.0 Infective myocarditis; I10 Essential (primary) hypertension; E78.5 Hyperlipidemia, unspecified; R79.89 Other specified abnormal findings of blood chemistry; R50.9 Fever, unspecified; R05 Cough; Z20.828 Contact with and (suspected) exposure to other viral communicable diseases; Z86.73 Personal history of transient ischemic attack (TIA), and cerebral infarction without residual deficits; Z87.891 Personal history of nicotine dependence; Z79.01 Long term (current) use of anticoagulants; Z79.899 Other long term (current) drug therapy
CPT/HCPCS: 36415; 70450; 71045; 71250; 74176; 80048; 80053; 80061; 80076; 81003; 81015; 82150; 82550; 82553; 82947; 83605; 83690; 83735; 83880; 84100; 84132; 84145; 84439; 84443; 84484; 85025; 85610; 85730; 87040; 87070; 87081; 87804; 93005; 93306; 96365; 96366; 96367; 99285; J0456; J0696; J1644; J3480; J7030; J7040; J7050; U0002

== ENCOUNTER 2020-08-18 11:24 | Inpatient (IN) | payer OTHER ==
--- OUTSIDE RECORDS SUMMARY | 2020-08-18 11:27 | XMS REPORT | Continuity of Care Document ---
:1940 Author Organization [facility] t Address [address] [place] [address] Care Team Providers Name Role Phone JOSE ARMANDO BARRETT Attending Clinician Unavailable JOSE ARMANDO BARRETT Admitting Clinician Unavailable Payers Payer Name Policy Type Policy Effective Date Expiration Date Sour ce Number [facility]IGNA [id number] [facility] [id number] PresentMaps Contracted Problems Condition Condition Condition Status Onset Resolution Last Treating Co mments Source Name Details Category Date Date Treatment Clinician Date Acute Acute Disease Active [facility] stroke [facility]: [facility] 00 Center Received Received Disease Active [facility] - plasminoge plasminoge 00:00: Me dical n n 00 Center activator activator (t-PA) (t-PA) less than less than 24 hours 24 hours prior to prior to arrival arrival Allergies, Adverse Reactions, Alerts This patient has no known allergies or adverse reactions. Social History Social Habit Start Date Stop Date Quantity Comments Source History of tobacco 1955-01-[address] [facility] [facility] - use 00:00:[address] [facility] Sex Assigned At [facility] - [facility] Cigarettes smoked 2019-01-16 2019-01-[address] [facility] - current (pack per 00:00:00 00:00:00 Medical Center day) - Reported Cigarette 2019-01-16 2019-01-[address] [facility] [employer] [facility] - pack-years 00:00:00 00:00:00 [facility] Tobacco use and 2019-01-16 2019-01-[address] [facility] [address] [facility] - exposure 00:00:00 00:00:00 Medical Center Alcohol intake 2019-01-16 2019-01-16 Current drinker RUBEN Quintanilla t [facility] - 00:00:00 00:00:00 of alcohol Medical Center (finding) History [facility] 2019-01-16 2019-01-[address] [facility] - Alcohol Frequency 00:00:00 00:00:00 Medical Center History [facility] 2019-01-16 2019-01-[address] [facility] - Alcohol Std Drinks 00:00:00 00:00:00 Medica l Center History [facility] 2019-01-16 2019-01-[address] [facility] - Alcohol Binge 00:00:00 00:00:[address] Tobacco Comment 2019-01-16 2019-01-16 "Don't preach [facility] - 00:00:00 00:00:00 me". Medical Center Smoking Status Start Date Stop Date Source Current every day smoker 2019-01-16 00:00:00 [facility] Medications Ordered Filled Start Stop Current Ordering Indication Dosage Frequency Signature Comments Components Source Medication Medication Date Date Medication? Clinician (SIG) Name Name amLODIPine 2019- No 10mg QD Take [address] (NORVASC) -20 -19 tablet (10 Panfilo es - 10 MG 00:00: 23:59 mg total) Medica l tablet 00 :00 by mouth Center daily. lisinopril 2019- No 5mg QD Take [address] (PRINIVIL,Z -20 -19 tablet (5 Alisa kes - ESTRIL) 5 00:00: 23:59 mg total) Me dical MG tablet 00 :00 by mouth Center daily. apixaban Yes 5mg Q.5D Take [address] (ELIQUIS) 5 4-19 tablet (5 Panfilo es - mg Tab 00:00: mg total) Medica l tablet 00 by mouth 2 Center (two) times daily. atorvastati 2019- No 80mg QD Take [address] n (LIPITOR) 4-19 04-18 tablet (80 L ukes - 80 MG 00:00: 23:59 mg total) Medica l tablet 00 :00 by mouth Center nightly. senna 2019- No 8.6mg Take [address] (SENOKOT) 4-19 04-18 tablet [facility] - 8.6 mg 00:00: 23:59 (8.6 mg Medical tablet 00 :00 total) by Center mouth daily with lunch. Procedures Procedure Date / Time Performed Performing Clinician Sourc e SARS-COV2/RT-PCR ([facility] 2020-04-17 01:02:00 [facility] Center Plan of Care Planned Activity Planned Date Details Comments Source Future Scheduled 2020-06-05 INFLUENZA VACCINE (#1) [facility] Test 00:00:00 [code = INFLUENZA Medical Ce nter VACCINE (#1)] Future Scheduled 2020-01-[address] [facility] - Test 00:00:00 WELLNESS (YEAR 2 or Medical Center FIRST YEAR if no IPPE) [code = MEDICARE ANNUAL WELLNESS (YEAR 2 or FIRST YEAR if no IPPE)] Future Scheduled 2007 PNEUMOCOCCAL 65+ YRS [facility] - Test 00:00:00 (1 of [address] [facility] [id number] PCV13) [code = PNEUMOCOCCAL 65+ YRS (1 of 1 - [id number] PCV13)] Results Test Description Test Time Test Comments Results Result Comments Source SARS-CoV2/RT-PCR ([facility] & Ref Labs) 2020-04-17 10:30:00 Test Item Value Reference Range Interpretation Comme nts SARS-COV2/RT-PCR (test code = Negative Not Detected, Negative 08463-3) SARS-COV-2 PERFORMING LAB [facility] (test code = 06465-1) MACARIO (test code = MACARIO) Negative results do not preclude SARS-CoV-2 infection and should not be used as the sole basis for patient management decisions. Negative results must be combined with clinical observations, patient history, and epidemiological information. A false negative result may occur if a specimen is improperly collected, transported or handled. The limit of detection for this assay is 250 copies/mL. This SARS CoV-2 test is a rapid, real-time RT-PCR test intended for the qualitative detection of nucleic acid from SARS-CoV-2 in a nasopharyngeal swab specimen collected from individuals suspected of COVID-19 by their healthcare provider. This test has not been Food and Drug Administration (FDA) cleared or approved and has been authorized by FDA under an Emergency Use Authorization (EUA). This EUA will be effective until the declaration that circumstances exist justifying the authorization of the emergency use of in vitro diagnostic tests for detection and/or diagnosis of COVID-19 is terminated under Section 564(b)(2) of the Act or the EUA is revoked under Section 564(g) of the Act. Fact Sheet for Healthcare Providers:https://www.C-Vibes/Documents/Xpert%20Xpress %20SARS%20CoV-2/Fact%20Sheets /302-3802%09NCZA-AUU-2%20HEAL THCARE%20PROVIDERS%20FACT%20S HEET.pdf Fact Sheet for Healthcare Patients:https://www.PayDivvy/Documents/Xpert%20Xpress% 20SARS%20CoV-2/Fact%20Sheets/ 302-3801%94FBXY-QDG-4%20PATIE NT%20FACT%20SHEET.pdf Performing Laboratory:[facility]OV2/RT-PCR ([facility] & REF LABS)2020-04-17 10:30:00 Test Item Value Reference Range Interpretation Comments SARS-COV2/RT-PCR (test code = Negative Not Detected, Negative 0699175) SARS-COV-[address] [facility] (test code = 8841510) Negative results do not preclude SARS-CoV-2 infection and should not be used as the sole basis for patient management decisions. Negative results must be combined with clinical observations, patient history, and epidemiological information. A false negative result may occur if a specimen is improperly collected, transported or handled.The limit of detection for this assay is 250 copies/mL.This SARS CoV-2 test is a rapid, real-time RT-PCR test intended for the qualitative detection of nucleic acid from SARS-CoV-2 in a nasopharyngeal swab specimen collected from individuals suspected of COVID-19 by their healthcare provider.This test has not been Food and Drug Administration (FDA) cleared or approved and has been authorized by FDA under an Emergency Use Authorization (EUA). This EUA will be effective until the declaration that circumstances exist justifying the authorization of the emergency use of in vitro diagnostic tests for detection and/or diagnosis of COVID-19 is terminated under Section 564(b)(2) of the Act or the EUA is revoked under Section 564(g) of the Act.Fact Sheet for Healthcare Pro viders:https://www.Vdancer/Documents/Xpert%20Xpress%20SARS%20CoV-2/Fact%20Sh eets/302-3802%12TLRY-IOG-9%20HEALTHCARE%20PROVIDERS%20FACT%20SHEET.pdfFact Sheet for Healthcare Patients:https://www.Socialcam/Documents/Xpert%20Xpress%20SARS%20CoV-2/Fact%20Sheets/302-3801%20SARS-COV -2%20PATIENT%20FACT%20SHEET.pdfPerforming Laboratory:[address].[place], [place] [address]LP, ESOPH, SWALLOW FUNCTION, WITH CINE OR [id number] 09:17:00Reason for exam:->dysphagiaFINAL REPORT Modified barium swallow dated 01/21/2019 Comment: Total patient f luoro time is 1.3 minutes. Total number of fluoroscopic images are2. Modified barium swallow was performed with assistance of speech pathologist. Patient swallowed liquid barium under fluoroscopy. There was prompt passage of contrast from oropharynx into the esophagus. Normal movement of epiglottis was noted. No aspiration noted during examination. Impression: No aspiration. Signed: Sonny Morales MDRepellis Verified Date/Time: 01/21/2019 09:17:36 Reading Location: [facility] B1 C013Y CT Body Reading Room COMPREHENSIVE METABOLIC [id number] 05:49:00 Test Item Value Reference Range Interpretation Comments TOTAL PROTEIN 7.1 gm/dL 6.0-8.3 (BEAKER) (test code = 770) ALBUMIN (BEAKER) 4.1 g/dL 3.5-5.0 (test code = 1145) ALKALINE PHOSPHATASE 43 U/L 40-150 (BEAKER) (test code = 346) BILIRUBIN TOTAL 0.7 mg/dL 0.2-1.2 (BEAKER) (test code = 377) SODIUM (BEAKER) (test 140 meq/L 136-145 code = 381) POTASSIUM (BEAKER) 3.7 meq/L 3.5-5.1 (test code = 379) CHLORIDE (BEAKER) 109 meq/L 98-107 H (test code = 382) CO2 (BEAKER) (test 20 meq/L 22-29 L code = 355) BLOOD UREA NITROGEN 31 mg/dL 7-21 H (BEAKER) (test code = 354) CREATININE (BEAKER) 0.98 mg/dL 0.57-1.25 (test code = 358) GLUCOSE RANDOM 100 mg/dL 70-105 (BEAKER) (test code = 652) CALCIUM (BEAKER) 9.8 mg/dL 8.4-10.2 (test code = 697) AST (SGOT) (BEAKER) 15 U/L 5-34 (test code = 353) ALT (SGPT) (BEAKER) 19 U/L 6-55 (test code = 347) EGFR (BEAKER) (test 74 mL/min/1.73 ESTIMA RJ GFR IS code = 1092) sq m NOT ACCURATE CREATININE CLEARANCE IN PREDICTING GLOMERULAR FILTRATION RATE . ESTIMATED GFR I S NOT APPLICABLE FOR DIALYSIS PATIEN TS. CBC W/PLT COUNT & AUTO [id number] 05:18:00 Test Item Value Reference Range Interpretation [...] (BEAKER) (test code = 2801) COMPREHENSIVE METABOLIC [id number] 07:12:00 Test Item Value Reference Range Interpretation [...] PATIEN TS. CBC W/PLT COUNT & AUTO [id number] 06:42:00 Test Item Value Reference Range Interpretation [...] (BEAKER) (test code = 2801) COMPREHENSIVE METABOLIC [id number] 07:00:00 Test Item Value Reference Range Interpretation [...] PATIEN TS. CBC W/PLT COUNT & AUTO [id number] 06:32:00 Test Item Value Reference Range Interpretation [...] 0-1 PERCENT (BEAKER) (test code = 2801) [id number] 03:59:00 Test Item Value Reference Range Interpretation Comments MAGNESIUM (BEAKER) 2.3 mg/dL 1.6-2.6 Specimen slightly (test code = 627) hemolyzed [id number] 03:59:00 Test Item Value Reference Range Interpretation Comments PHOSPHORUS (BEAKER) 3.1 mg/dL 2.3-4.7 Specimen slightly (test code = 604) hemolyzed COMPREHENSIVE METABOLIC [id number] 03:59:00 Test Item Value Reference Range Interpretation [...] PATIEN TS. CBC W/PLT COUNT & AUTO [id number] 03:43:00 Test Item Value Reference Range Interpretation [...] (test code = 2801) MR, BRAIN, WITHOUT [id number] 02:57:00FINAL REPORT MR, BRAIN, WITHOUT CONTRAST INDICATION: [...] the left temporal lobe Signed: Farrah Dhillon MDRtremayneort Verified Date/Time: 01/18/2019 02:57:54 Reading Location: [facility] [id number] Neuro Reading Room LIPID [id number] 13:07:00 Test Item Value Reference Range Interpretation [...] Borderline 130-159 High 160-189 Very High >=190HEMOGLOBIN [id number] 12:44:00 Test Item Value Reference Range Interpretation Comments HEMOGLOBIN A1C (BEAKER) (test code = 5.4 % 4.3-6.1 368) [id number] 09:02:00 Test Item Value Reference Range Interpretation Comments PHOSPHORUS (BEAKER) (test code = 2.5 mg/dL 2.3-4.7 604) [id number] 09:02:00 Test Item Value Reference Range Interpretation Comments MAGNESIUM (BEAKER) (test code = 2.1 mg/dL 1.6-2.6 627) COMPREHENSIVE METABOLIC [id number] 09:02:00 Test Item Value Reference Range Interpretation [...] FOR DIALYSIS PATIEN TS. CT, BRAIN, WITHOUT [id number] 07:06:00FINAL REPORT CT, BRAIN, WITHOUT CONTRAST CLINICAL [...] recommended for further characterization. Signed: Farrah Dhillon Verified Date/Time: 01/17/2019 07:06:33 Reading Location: [facility] C0[facility] Neuro Reading Room CBC W/PLT COUNT & AUTO [id number] 04:18:00 Test Item Value Reference Range Interpretation [...] (BEAKER) (test code = 2801) COMPREHENSIVE METABOLIC [id number] 13:24:00 Test Item Value Reference Range Interpretation [...] PATIEN TS. CBC W/PLT COUNT & AUTO [id number] 12:01:00 Test Item Value Reference Range Interpretation [...]
--- OUTSIDE RECORDS SUMMARY | 2020-08-18 11:27 | XMS REPORT | Clinical Summary ---
:1940 Author Organization [facility] Address [address] [place] [address] Care Team Providers Name Role Phone Unavailable [...] than 24 hours prior to 01/16/2019 arrival Encounters Date Type Specialty Care Team Description 04/17/2020 Lab Requisition Lab after 08/18/2019 Social History Tobacco Use Types Packs/Day Years Used Date Current Every Day Smoker Cigarettes 1 59 Sta rted: 01/16/1955 Smokeless Tobacco: Never Used Tobacco Cessation: Ready to Quit: No; Co unseling Given: No Comments: "Don't preach me". Alcohol Use Drinks/Week oz/Week Comments Yes 1 Glasses of wine 1.0 Alcohol Habits Answer Date Recorded How often do you have a drink containing alcohol? 2-4 times a month 01/16/2019 How many drinks containing alcohol do you have on a 1 or 2 01/16/2019 typical day when you are drinking? How often do you have six or more drinks on one Never 01/16/2019 occasion? Sex Assigned at Date Recorded Not on file Last Filed Vital Signs Not on file Plan of Treatment Health Maintenance Due Date Last Done Comments PNEUMOCOCCAL 65+ YRS (1 of 1 - [id number] PCV13) 2007 MEDICARE ANNUAL WELLNESS (YEAR 2 or FIRST YEAR if no 01/18/2020 IPPE) INFLUENZA VACCINE (#1) 2020 Procedures Procedure Name Priority Date/Time Associated Diagnosis Comme nts SARS-COV2/RT-PCR Routine 04/17/2020 1:02 AM Resu lts for this ([facility] & REF LABS) CDT procedure are in the results section. after 08/18/2019 Results SARS-CoV2/RT-PCR ([facility] & Ref Labs) (04/17/2020 1:02 AM CDT) SARS-COV2/RT-PCR Negative Not Detected, [facility] Negative [facility] SARS-COV-2 [facility] PERFORMING LAB [facility] Specimen Other - Nasopharyngeal wall structure (b sarahi structure) Narrative Performed At Negative results do not preclude SARS-CoV-2 [facility] infection and should not be used as [...] of the Act. Fact Sheet for Healthcare Providers: https://www.MercadoTransporte Ltd/Documents/Xpert%20Xpre ss%20SARS%20CoV-2/Fact%20Sheets/302-3802%20SAR S-COV-2%20HEALTHCARE%20PROVIDERS%20FACT%20SHEE T.pdf Fact Sheet for Healthcare Patients: https://www.MercadoTransporte Ltd/Documents/Xpert%20Xpre ss%20SARS%20CoV-2/Fact%20Sheets/302-3801%20SAR S-COV-2%20PATIENT%20FACT%20SHEET.pdf Performing Laboratory: [address] [address] Performing Organization Address [facility]State[facility] Phone Number [address] [address] CENTER after 08/18/2019 Insurance Payer Benefit Plan / Subscriber ID Effective Phone Address T ype Group Dates CIGNA CIGNA [id number] 2019-Pr [facility]ent Contracted
[2020-08-18 12:34] LABS: Absolute Lymphocytes (CBC) 1.5 K/uL (0.7-4.9); Basophils % 0.7 % (0-1.3); Hematocrit 34.5 % (39.6-49.0); Lymphocytes % 20.7 % (15.3-44.8); MPV 10.5 fL (7.6-11.3)
[2020-08-18 12:41] LABS: BUN Blood Urea Nitrogen 14 mg/dL (7-18); Bicarbonate 28 mmol/L (21-32); Glucose Level 93 mg/dL (74-106); Potassium 3.4 mmol/L (3.5-5.1); Sodium Level 146 mmol/L (136-145)
[2020-08-18 13:29] LABS: Creatine Phosphokinase 63 U/L (39-308)
--- NOTE | 2020-08-18 13:31 | ER ---
Nurse's Notes [facility] Name: Paz Crews Age: 80 yrs Sex: Male : 1940 Arrival Date: 08/18/2020 Time: 11:32 Bed 19 Private MD: Diagnosis: Weakness;Hypokalemia;Dehydration Presentation: 08/18 11:35 Chief complaint: EMS states: pt was found on the floor by the home health nurse lying ah in feces and urine that was there to admit him to home health services. EMS states that house was very dirty, pt was unable to get up alone, no AC, and pt has no family.he was discharged from a rehab yesterday per his decision. Coronavirus screen: At this time, the client does not indicate any symptoms associated with coronavirus-19. Ebola Screen: No symptoms or risks identified at this time. Initial Sepsis Screen: Does the patient meet any 2 criteria? No. Patient's initial sepsis screen is negative. Does the patient have a suspected source of infection? No. Patient's initial sepsis screen is negative. Risk Assessment: Do you want to hurt yourself or someone else? Patient reports no desire to harm self or others. Onset of symptoms was August 18, 2020. 11:35 Method Of Arrival: EMS: [facility] 11:35 Acuity: THELMA 3 Historical: - Allergies: 13:26 No Known Allergies; ah - PMHx: 13:26 Anxiety; SINA; cognitive communication deficit; CVA; hemiplagia; Hypertension; Liver ah cirrhosis; High Cholesterol; Sleep Apnea; Vitamin B12 Deficiency; - PSHx: 13:26 abscess tendon sheath left thigh; - Immunization history:: Adult Immunizations not up to date, Flu vaccine is not up to date. - Family history:: not pertinent. - Social history:: Smoking status: Patient denies any tobacco usage or history of. Patient uses alcohol, but reports only rare drinking. - Hospitalizations: : No recent hospitalization is reported. Screenin:30 Abuse screen: Denies threats or abuse. Nutritional screening: No deficits noted. Tuberculosis screening: No symptoms or risk factors identified. Fall Risk Fall in past 12 months (25 points). Secondary diagnosis (15 points) impaired mobility, CVA, IV access (20 points). Ambulatory Aid- None/Bed Rest/Nurse Assist (0 pts). Gait- Impaired (20 pts.). Mental Status- Oriented to own ability (0 pts). Total Joy Fall Scale indicates High Risk Score (45 or more points). Assessment: 11:45 General: Appears in no apparent distress. unkempt, Behavior is calm, cooperative. Pain: ah Denies pain. Neuro: Level of Consciousness is awake, alert, obeys commands, Oriented to person, place, time, situation, Appropriate for age. Cardiovascular: Heart tones S1 S2 present Capillary refill < 3 seconds Patient's skin is warm and dry. Respiratory: Airway is patent Respiratory effort is even, unlabored, Respiratory pattern is regular, symmetrical. GI: Bowel sounds present X 4 quads. Patient currently denies diarrhea, nausea, vomiting. : Reports incontinence. Derm: Skin is intact, is healthy with good turgor. 12:45 Reassessment: Patient and/or family updated on plan of care and expected duration. Pain ah level reassessed. Patient is alert, oriented x 3, equal unlabored respirations, skin warm/dry/pink. no needs voiced at this time. 13:45 Reassessment: Patient and/or family updated on plan of care and expected duration. Pain ah level reassessed. Patient is alert, oriented x 3, equal unlabored respirations, skin warm/dry/pink. Awaiting on decision to be made on disposition. No needs voiced at this time. Vital Signs: 11:40 BP 144 / 81; Pulse 71; Resp 16 S; Pulse Ox 97% on R/A; ca1 12:30 BP 156 / 79; Pulse 69; Resp 18 S; Pulse Ox 97% on R/A; ca1 14:30 BP 135 / 88; Pulse 72; Resp 17; Pulse Ox 98% ; ah 15:30 BP 152 / 55; Pulse 68; Resp 16; Pulse Ox 97% ; ah 16:30 BP 134 / 70; Pulse 70; Resp 18; Pulse Ox 99% ; ah ED Course: 11:32 Patient arrived in ED. 11:34 Malachi Puente MD is Attending Physician. rn 12:19 Inserted saline lock: 20 gauge in right antecubital area, using aseptic technique. dh4 Blood collected. Missed attempt(s): 20 gauge in right forearm. 13:20 Sejal Fleming, RN is Primary Nurse. 13:23 Triage completed. ah 13:29 Tacho Puente MD is Hospitalizing Provider. rn 13:30 Patient has correct armband on for positive identification. Bed in low position. Call light in reach. Side rails up X2. Pulse ox on. NIBP on. 17:10 No provider procedures requiring assistance completed. Patient admitted, IV remains in place. Administered Medications: No medications were administered Outcome: 13:30 Decision to Hospitalize by Provider. rn 17:09 Admitted to Med/surg accompanied by tech, via stretcher, room 207, with chart, Report called to MAXIMUS Merino 17:09 Condition: stable 17:09 Instructed on the need for admit. 17:11 Patient left the ED. Signatures: Malachi Puente MD MD rn Acob, Vivi, RN RN [facility] Sejal Fleming RN RN Vinicio Dow 4
--- NOTE | 2020-08-18 13:31 | EDPHYS ---
Physician Documentation [facility] Name: Paz Crews Age: 80 yrs Sex: Male : 1940 Arrival Date: 08/18/2020 Time: 11:32 Bed 19 Private MD: ED Physician Malachi Puente HPI: 08/18 13:19 This 80 yrs old Male presents to ER via Unassigned with complaints of rn weakness, AMS. 13:19 Home health nurse arrived for initial intake exam today, found him on ground, in feces rn and urine. Patient states had accident last night after coughing, unable to get up or get to bathroom 2/2 hemiplegia from previous stroke. Checked himself out of [facility] yesterday to try and live on his own, now realizes was a bad decision. NO family here to help. Does not want to go back to [facility]. Has been there for months, almost a year since stroke. . Onset: The symptoms/episode began/occurred this morning. Severity of symptoms: At their worst the symptoms were moderate in the emergency department the symptoms are unchanged. It is unknown whether or not the patient has had similar symptoms in the past. The patient has been recently seen by a physician:. Historical: - Allergies: 13:26 No Known Allergies; ah - PMHx: 13:26 Anxiety; SINA; cognitive communication deficit; CVA; hemiplagia; Hypertension; Liver ah cirrhosis; High Cholesterol; Sleep Apnea; Vitamin B12 Deficiency; - PSHx: 13:26 abscess tendon sheath left thigh; ah - Immunization history:: Adult Immunizations not up to date, Flu vaccine is not up to date. - Family history:: not pertinent. - Social history:: Smoking status: Patient denies any tobacco usage or history of. Patient uses alcohol, but reports only rare drinking. - Hospitalizations: : No recent hospitalization is reported. ROS: 13:19 Constitutional: Negative for fever, chills, and weight loss, Eyes: Negative for injury, rn pain, redness, and discharge, Neck: Negative for injury, pain, and swelling, Cardiovascular: Negative for chest pain, palpitations, and edema, Respiratory: Negative for shortness of breath, wheezing, and pleuritic chest pain, Abdomen/GI: Negative for abdominal pain, nausea, vomiting, diarrhea, and constipation, Back: Negative for injury and pain, : Negative for injury, bleeding, discharge, and swelling, MS/Extremity: Negative for injury and deformity, Skin: Negative for injury, rash, and discoloration, Neuro: Negative for headache,and seizure. Exam: 13:19 Constitutional: Elderly patient, awake and alert Head/Face: Normocephalic, rn atraumatic. ENT: dry MM Cardiovascular: Regular rate and rhythm. No pulse deficits. Respiratory: Speaking full sentences. No increased work of breathing, no retractions or nasal flaring. Abdomen/GI: soft, non-tender Skin: Warm, dry MS/ Extremity: Pulses equal, no cyanosis. Neuro: Awake and alert, GCS 15, oriented to person, place, and situation. + baseline left sided hemiplegia with some movement against gravity, LLE stronger than LUE. RUE/RLE 4/5 strength and equal. Vital Signs: 11:40 BP 144 / 81; Pulse 71; Resp 16 S; Pulse Ox 97% on R/A; ca1 12:30 BP 156 / 79; Pulse 69; Resp 18 S; Pulse Ox 97% on R/A; ca1 14:30 BP 135 / 88; Pulse 72; Resp 17; Pulse Ox 98% ; ah 15:30 BP 152 / 55; Pulse 68; Resp 16; Pulse Ox 97% ; ah 16:30 BP 134 / 70; Pulse 70; Resp 18; Pulse Ox 99% ; ah MDM: 11:34 Patient medically screened. rn 13:19 Differential Diagnosis dehydration, weakness, electrolyte disturbance, rhabdomyolysis. rn . Data reviewed: vital signs, nurses notes, lab test result(s), EKG, and as a result, I will admit patient. Counseling: I had a detailed discussion with the patient and/or guardian regarding: the historical points, exam findings, and any diagnostic results supporting the discharge/admit diagnosis, lab results, the need for further work-up and treatment in the hospital. Admission orders: after a detailed discussion of the patient's condition and case, the admit orders are written by me. ED course: Pt with hemiplegia, checked himself out of [facility] immaturely, sees his mistake, + hypokalemia, dehdyration. Per report form EMS, no air conditioning and no food in house. Will have to admit to hospitalist service for placement as patient does not want to go back to [facility]. . 08/18 11:48 Order name: CBC with Diff; Complete Time: 12:50 rn 08/18 11:48 Order name: Basic Metabolic Panel rn 08/18 11:48 Order name: Urine Microscopic Only rn 08/18 11:48 Order name: EKG; Complete Time: 11:49 rn 08/18 13:17 Order name: Creatine Phosphokinase [facility] 08/18 11:48 Order name: IV Start; Complete Time: 12:20 rn 08/18 11:48 Order name: EKG - Nurse/Tech; Complete Time: 12:42 rn Administered Medications: No medications were administered Disposition: 08/18/20 13:30 Hospitalization ordered by Tacho Puente for Inpatient Admission. Preliminary diagnosis are Weakness, Hypokalemia, Dehydration. - Bed requested for Telemetry/MedSurg (Inpatient). - Status is Inpatient Admission. ah - Condition is Stable. - Problem is an ongoing problem. - Symptoms are unchanged. Signatures: Dispatcher [employer] [facility] Malachi Puente MD MD rn Aguilar, Jose, RN RN ja1 Sejal Fleming RN RN Corrections: (The following items were deleted from the chart) 13:17 13:16 CREATINE PHOSPHOKINASE+C.LAB.BRZ ordered. [facility] 16:33 13:30 Hospitalization Ordered by Tacho Puente MD for Inpatient Admission. Preliminary cassius diagnosis is Weakness; Hypokalemia; Dehydration. Bed requested for Telemetry/MedSurg (Inpatient). Status is Inpatient Admission. Condition is Stable. Problem is an ongoing problem. Symptoms are unchanged. rn 17:11 16:33 08/18/2020 13:30 Hospitalization Ordered by Tacho Puente MD for Inpatient Admission. Preliminary diagnosis is Weakness; Hypokalemia; Dehydration. Bed requested for Telemetry/MedSurg (Inpatient). Status is Inpatient Admission. Condition is Stable. Problem is an ongoing problem. Symptoms are unchanged. jane
--- NOTE | 2020-08-18 15:16 | P.HP ---
Certification for Inpatient Patient admitted to: Observation With expected LOS: <2 Midnights Practitioner: I am a practitioner with admitting privileges, knowledge of patient current condition, hospital course, and medical plan of care. Services: Services provided to patient in accordance with Admission requirements found in Title 42 Section 412.3 of the Code of Federal Regulations Patient History Date of Service: 08/18/20 Reason for admission: Debility, History of Present Illness: 80-year-old male PMH: CVA with left sided hemiplegia brought in by EMS due to profound weakness. Home health nurse derive for initial intake exam today, found him in his bed covered in feces and urine. She attempted to help him up out of bed and was unable to, and patient was unable to assist so she called EMS. Patient states she just signed himself out of [facility] after a brief 3 week stay due to not liking it and unable to continue to afford it. He states he has chronic intermittent diarrhea/constipation. Last night he coughed and accidentally soiled himself in the bed. He states this happened again when the home health nurse was helping him to get out of bed. Patient denies any other past medical history. Review of the EMR reveals patient has some anxiety, some level of cognitive deficit, hypertension, liver cirrhosis. Allergies No Known Allergies Allergy (Verified 04/17/20 07:38) Home Medications: Amlodipine [Norvasc*] 5 mg PO DAILY 04/17/20 Apixaban [Eliquis] 5 mg PO BID 04/17/20 Baclofen 10 mg PO DAILY 04/17/20 Cyanocobalamin (Vitamin B-12) [Vitamin B-12] 500 mcg PO DAILY 04/17/20 Lisinopril [Zestril] 5 mg PO DAILY 04/17/20 Sennosides [Senna] 8.6 mg PO DAILY 04/17/20 Trazodone [Desyrel*] 50 mg PO BEDTIME 04/17/20 Atorvastatin Calcium [Lipitor] 40 mg PO BEDTIME #30 tab 04/19/20 Metoprolol Tartrate [Lopressor*] 25 mg PO BID 6AM 6PM #60 tab 04/19/20 Potassium Chloride [K-Dur] 20 meq PO DAILY #7 tab.er.prt 04/19/20 - Past Medical/Surgical History -: Stroke -: High cholesterol -: HTN -: Hemiplagia -: Cognitive communication deficit -: SINA -: anxiety -: Vitamin B12 deficiency -: Sleep apnea -: Liver cirrhosis -: Abscess tendon sheath left thigh - Family History Father -: Heart disease - Social History Smoking Status: Former smoker (quite 1.5 yrs ago) Alcohol use: No CD- Drugs: No Place of Residence: Home Review of Systems 10-point ROS is otherwise unremarkable Physical Examination - Physical Exam General: Alert, Oriented x3, Cooperative, Disheveled, Other (shirt with what appears to have dried feces on it) HEENT: PERRLA, Sclerae nonicteric Respiratory: Clear to auscultation bilaterally, Normal air movement Cardiovascular: No edema, Regular rate/rhythm Gastrointestinal: Soft and benign, Non-distended, No tenderness Musculoskeletal: No tenderness Integumentary: No rashes Neurological: Normal speech, Normal affect, Other (strength RUE: 4+/5, RLE: 4/5; LUE/LLE: minimal movement against graviy at shoulder/hip) - Studies Laboratory Data (last 24 hrs) 08/18/20 12:15: Sodium 146 H, Potassium 3.4 L, BUN 14, Creatinine 0.59, Glucose 93 08/18/20 12:15: WBC 7.2, Hgb 11.7 L, Hct 34.5 L, Plt Count 157 Assessment and Plan - Advance Directives Does patient have a Living Will: No Does patient have a Durable POA for Healthcare: Yes Physician Review Additional Text: Moderate-severe debilitation Extreme fall risk Prior CVA with left-sided hemiplegia Chronic loose stool Hypokalemia Hypernatremia HTN Liver cirrhosis -patient with significant weakness, unable to pull himself out of bed, or even to assist with being pulled out of bed -during my exam, patient unable to even scoot up on the stretcher to get more comfortable -found covered in feces and urine. The EMS reported home with without AC, and no food seen. -will bring patient in, consult PT/OT -IV fluid hydration, replete hypokalemia -obtain home meds and restart as appropriate -obtain UA -patient reports a several month history of bouncing back and forth between having loose stools and constipation -only has about 1 loose stool/day VTE: lovenox Dispo: anticipate hospitalization <48hrs, patient unlikely to safely be discharged home with current weakness / debility Time Spent Managing Pts Care (In Minutes): 55
[2020-08-18] MEDS ORDERED: KCL 10 MEQ/100 ML IVPB 10 MEQ/100 ML BAG IV SCH (17:20)
[2020-08-18 17:42] VITALS: BMI 27.3
[2020-08-18] MEDS: NA CHLORIDE 0.9% 1,000 ML IV SCH (17:59)
[2020-08-18] MEDS ORDERED: KCL 20 MEQ/100 mL IVPB 20 MEQ/100 ML BAG IV ONE (18:00)
[2020-08-18 18:14] LABS: Albumin 3.7 g/dL (3.4-5.0); Bilirubin Direct 0.2 mg/dL (0-0.2); Bilirubin Total 0.5 mg/dL (0.2-1.0); Magnesium 2.2 mg/dL (1.8-2.4); Protein, Total 7.1 g/dL (6.4-8.2)
[2020-08-18] MEDS ORDERED: POTASSIUM CL SA 10 MEQ TAB PO ONE (21:00)
[2020-08-19 01:03] LABS: Urine Appearance CLEAR; Urine Bilirubin NEGATIVE (NEG); Urine Blood NEGATIVE (NEG); Urine Color YELLOW; Urine Glucose NEGATIVE (NEG); Urine Protein NEGATIVE (NEG); Urine Specific Gravity 1.015 (1.005-1.030); Urine pH 7.5 (5.0-7.0)
[2020-08-19 01:12] LABS: Urine Microscopic Reflex NO UMIC
[2020-08-19] MEDS: NA CHLORIDE 0.9% 1,000 ML IV SCH (03:02)
[2020-08-19] MEDS ORDERED: PNEUMOCOCCAL VACCINE 0.5 ML IMVAC ONE (06:00)
[2020-08-19] MEDS ORDERED: INFLUENZA VACCINE (for 3y+) 0.5 ML DOSE IMVAC ONE (06:00)
[2020-08-19 06:12] LABS: Absolute Lymphocytes (CBC) 1.8 K/uL (0.7-4.9); Basophils % 0.8 % (0-1.3); Hematocrit 32.2 % (39.6-49.0); Lymphocytes % 26.3 % (15.3-44.8); MPV 9.7 fL (7.6-11.3); Protime INR 1.43; RBC Red Blood Cell Count 4.03 M/uL (4.33-5.43)
[2020-08-19 06:28] LABS: ALT/SGPT 23 U/L (12-78); AST/SGOT 15 U/L (15-37); Albumin 3.5 g/dL (3.4-5.0); Alkaline Phosphatase 68 U/L (45-117); BUN Blood Urea Nitrogen 12 mg/dL (7-18); Bicarbonate 26 mmol/L (21-32); Bilirubin Total 0.6 mg/dL (0.2-1.0); Glucose Level 84 mg/dL (74-106); Magnesium 2.1 mg/dL (1.8-2.4); Phosphorus 2.5 mg/dL (2.5-4.9); Potassium 3.4 mmol/L (3.5-5.1); Protein, Total 6.9 g/dL (6.4-8.2); Sodium Level 144 mmol/L (136-145)
--- NOTE | 2020-08-19 07:42 | EKG ---
Test Date: 2020-08-18 Test Time: 12:37:07 Market Research Associate: NAVA MEASUREMENT RESULTS: Intervals: Rate: 70 SD: 182 QRSD: 132 QT: 470 QTc: 507 [place]: P: 53 SD: 182 QRS: 46 T: 36 INTERPRETIVE STATEMENTS: Sinus rhythm with marked sinus arrhythmia Right bundle branch block Abnormal ECG Compared to ECG 04/18/2020 09:17:22 Atrial premature complex(es) no longer present Fusion complex(es) no longer present T-wave abnormality no longer present Possible ischemia no longer present Electronically Signed On 08-19-20 07:40:38 COMMUNITY FACILITATOR by Kt Topete
[2020-08-19 08:01] LABS: Platelet Estimate ADEQ; White Blood Cell Scan OK (OK)
[2020-08-19 08:02] LABS: Blood Morphology Comment NOT SEEN (NOT SEEN)
[2020-08-19] MEDS ORDERED: POTASSIUM PHOS 30 MM in NA CHLORIDE 0.9% 500 ML IV ONE (09:00)
[2020-08-19] MEDS ORDERED: ENOXAPARIN 40 MG/0.4 ML SQ SCH (09:00)
[2020-08-19] MEDS ORDERED: HYDRALAZINE HCL 20 MG/ML VIAL IV PRN (09:43)
--- NOTE | 2020-08-19 16:25 | P.PN ---
Subjective Date of Service: 08/19/20 Chief Complaint: Debility, Subjective: No new changes (Patient reports feeling about the same, reports no diarrhea.) Review of Systems 10-point ROS is otherwise unremarkable Physical Examination - Vital Signs Temperature: 98.3 F Blood Pressure: 138/67 Pulse: 80 Respirations: 20 Pulse Ox (%): 96 - Physical Exam General: Alert, In no apparent distress HEENT: Sclerae nonicteric Respiratory: Clear to auscultation bilaterally, Normal air movement Cardiovascular: Regular rate/rhythm, Edema (Trace of left lower extremity, none on the RLE) Gastrointestinal: Soft and benign, No tenderness Musculoskeletal: No tenderness Neurological: Abnormal strength (Strength: RUE: 4 to 4+/5, RLE: 4/5, LUE/LLE 3/5 at shoulder/hip ) Assessment & Plan Physician Review Additional Text: Moderate-severe debilitation Extreme fall risk Prior CVA with left-sided hemiplegia Chronic loose stool Hypokalemia Hypernatremia HTN Liver cirrhosis -found covered in feces and urine. The EMS reported home with without AC, and no food seen. -patient with significant weakness, unable to pull himself out of bed, or even to assist with being pulled out of bed -evaluated by physical therapy today, patient is maximum assist x2 persons to get him from supine to sitting position -IV fluid hydration, replete hypokalemia -having difficulty obtaining home medications, patient is unsure, no refills from pharmacy; states he takes "lots of meds" VTE: lovenox Dispo: With profound weakness/debility. Unable to be safely discharged home without 24 supervision/assistance Time Spent Managing Pts Care (In Minutes): 35
[2020-08-20 05:57] LABS: Absolute Lymphocytes (CBC) 1.9 K/uL (0.7-4.9); Basophils % 0.9 % (0-1.3); Hematocrit 33.9 % (39.6-49.0); Lymphocytes % 27.3 % (15.3-44.8); MPV 9.9 fL (7.6-11.3)
[2020-08-20 06:17] LABS: BUN Blood Urea Nitrogen 12 mg/dL (7-18); Bicarbonate 24 mmol/L (21-32); Glucose Level 94 mg/dL (74-106); Magnesium 2.2 mg/dL (1.8-2.4); Phosphorus 2.9 mg/dL (2.5-4.9); Potassium 3.4 mmol/L (3.5-5.1); Sodium Level 143 mmol/L (136-145)
[2020-08-20] MEDS: APIXABAN 5 MG TABLET PO SCH ×2 (08:20→20:42)
[2020-08-20] MEDS: lisinopriL 5 MG TAB PO SCH (08:23)
[2020-08-20] MEDS ORDERED: POTASSIUM 25 MEQ EFFERV TAB PO ONE ×2 (09:00→19:54)
--- NOTE | 2020-08-20 11:12 | P.PN ---
Subjective Date of Service: 08/20/20 Chief Complaint: Debility, Subjective: No new changes (feeling about the same, reports 2-3 small loose stool overnight which he states is "typical".) Review of Systems 10-point ROS is otherwise unremarkable Physical Examination - Vital Signs Temperature: 97.5 F Blood Pressure: 147/71 Pulse: 68 Respirations: 16 Pulse Ox (%): 98 - Physical Exam General: Alert, In no apparent distress HEENT: Sclerae nonicteric Respiratory: Clear to auscultation bilaterally, Normal air movement Cardiovascular: Edema (trace LLE) Gastrointestinal: Soft and benign, Non-distended, No tenderness Neurological: Normal speech, Abnormal strength (4/5 of RUE/RLE, L hemiplegia, able to move at shoulder/hip a few degrees) Assessment & Plan Physician Review Additional Text: severe debilitation Extreme fall risk Prior CVA with left-sided hemiplegia Chronic loose stool Hypokalemia Hypernatremia HTN Liver cirrhosis -found covered in feces and urine. The EMS reported home with without AC, and no food seen. Recently signed out of [facility] (~1-2 days prior) -patient with significant weakness, unable to pull himself out of bed, or even to assist with being pulled out of bed -evaluated by PT - required max assist x 2 person to get him from supine -> sitting -dc IVF, pt tolerating diet, replete low potassium -having difficulty obtaining home medications, patient is unsure of what he takes. Waiting on medication list fax from [facility] - unable to obtain over the weekend -he does now state he takes Eliquis since his stroke VTE: home Eliquis Dispo: With profound weakness/debility. Unable to be safely discharged home without 24 supervision/assistance SW/AMY working on SNF placement Time Spent Managing Pts Care (In Minutes): 30
[2020-08-20 14:18] LABS: C.diff Antigen/Toxin Ag pos : Tox neg (NEG : NEG)
[2020-08-20] MEDS: METOPROLOL TAR 25 MG TAB PO SCH (17:08)
[2020-08-20] MEDS: LOPERAMIDE HCL 2 MG CAPSULE PO PRN (20:42)
[2020-08-20] MEDS ORDERED: ATORVASTATIN 40 MG TAB PO SCH (21:00)
[2020-08-21 05:00] LABS: BUN Blood Urea Nitrogen 15 mg/dL (7-18); Bicarbonate 23 mmol/L (21-32); Glucose Level 95 mg/dL (74-106); Magnesium 2.1 mg/dL (1.8-2.4); Phosphorus 3.1 mg/dL (2.5-4.9); Potassium 3.4 mmol/L (3.5-5.1); Sodium Level 143 mmol/L (136-145)
[2020-08-21] MEDS ORDERED: POTASSIUM 25 MEQ EFFERV TAB PO ONE (05:42)
[2020-08-21] MEDS: LOPERAMIDE HCL 2 MG CAPSULE PO PRN (06:24)
[2020-08-21] MEDS: METOPROLOL TAR 25 MG TAB PO SCH ×2 (06:25→17:21)
[2020-08-21 08:48] VITALS: O2SAT 93
[2020-08-21] MEDS: APIXABAN 5 MG TABLET PO SCH (08:48)
[2020-08-21] MEDS: lisinopriL 5 MG TAB PO SCH (08:49)
--- NOTE | 2020-08-21 12:23 | P.PN ---
Subjective Date of Service: 08/21/20 Chief Complaint: Debility, Patient currently has no new complaint. Physical Examination - Vital Signs Temperature: 98.2 F Blood Pressure: 144/64 Pulse: 70 Respirations: 17 Pulse Ox (%): 96 - Physical Exam General: Alert, In no apparent distress HEENT: Mucous membr. moist/pink Respiratory: Clear to auscultation bilaterally, Normal air movement Cardiovascular: No edema, Regular rate/rhythm, Normal S1 S2 Gastrointestinal: Normal bowel sounds, Soft and benign Musculoskeletal: No swelling Integumentary: No rashes Neurological: Other (Left hemiparesis) - Studies Microbiology Data (last 24 hrs): 08/18/20 18:05 Nasopharnyx Coronavirus COVID-19 PCR - Final Assessment And Plan - Current Problems (Diagnosis) (1) Debility, unspecified Current Visit: Yes Status: Acute (2) History of CVA (cerebrovascular accident) Current Visit: Yes Status: Acute (3) Liver cirrhosis Current Visit: Yes Status: Acute (4) Chronic diarrhea Current Visit: Yes Status: Acute (5) Hypokalemia Current Visit: Yes Status: Acute - Plan Patient getting PT. Replete electrolytes as needed. ash worker is management assisting with disposition. No benefit from inpatient rehab. C diff is pending. Physician Review Additional Text: severe debilitation Extreme fall risk Prior CVA with left-sided hemiplegia Chronic loose stool Hypokalemia Hypernatremia HTN Liver cirrhosis -found covered in feces and urine. The EMS reported home with without AC, and no food seen. [facility] -patient with significant weakness, unable to pull himself out of bed, or even to assist with being pulled out of bed -evaluated by PT - required max assist x 2 person to get him from supine -> sitting -dc IVF, pt tolerating diet, replete low potassium -having difficulty obtaining home medications, patient is unsure of what he takes. [facility] - unable to obtain over the weekend -he does now state he takes Eliquis since his stroke VTE: home Eliquis Dispo: With profound weakness/debility. Unable to be safely discharged home without 24 supervision/assistance SW/AMY working on SNF placement
--- NOTE | 2020-08-21 15:27 | P.DS ---
Admission Date: 08/20/20 Discharge Date: 08/21/20 Disposition: TRANSFR TO OTHER-PSY/CD/REHAB Discharge Condition: FAIR Reason for Admission: Debility, Consultations: None - Problems (1) Debility, unspecified Current Visit: Yes Status: Acute (2) History of CVA (cerebrovascular accident) Current Visit: Yes Status: Acute (3) Liver cirrhosis Current Visit: Yes Status: Acute (4) Chronic diarrhea Current Visit: Yes Status: Acute (5) Hypokalemia Current Visit: Yes Status: Acute Brief History of Present Illness: 80-year-old gentleman with a history of CVA with left-sided hemiparesis presented to the emergency department with a complaint of weakness. Patient could not transfer from bed due to weakness. He checked out of skilled rehab after being there for about 3 weeks. His home health nurse could not be assist him to transfer. He was then brought to the emergency department for further evaluation. Hospital Course: Patient was admitted to the medical floor. Stool for C. diff was checked given his chronic diarrhea. His stool was positive for C. diff antigen but not toxins suggesting C. diff diarrhea state. He underwent sessions of physical therapy. He is clinically stable for discharge. He has been accepted for rehab at [facility]. Vital Signs/Physical Exam: Temp Pulse Resp BP Pulse Ox 98.2 F 70 17 144/64 H 96 08/21/20 12:23 08/21/20 12:23 08/21/20 12:23 08/21/20 12:23 08/21/20 12:23 General: Alert, In no apparent distress HEENT: Mucous membr. moist/pink Neck: Supple, JVD not distended Respiratory: Clear to auscultation bilaterally, Normal air movement Cardiovascular: No edema, Regular rate/rhythm, Normal S1 S2 Gastrointestinal: Normal bowel sounds, Soft and benign, Non-distended, No tenderness Musculoskeletal: No swelling, No tenderness Integumentary: No rashes Neurological: Other (Left hemiparesis) Laboratory Data at Discharge: WBC 6.9 K/uL (4.3-10.9) 08/20/20 05:18 Hgb 11.5 g/dL (13.6-17.9) L 08/20/20 05:18 Hct 33.9 % (39.6-49.0) L 08/20/20 05:18 Plt Count 155 K/uL (152-406) 08/20/20 05:18 PT 16.8 SECONDS (9.5-12.5) H 08/19/20 05:41 INR 1.43 08/19/20 05:41 Sodium 143 mmol/L (136-145) 08/21/20 04:15 Potassium 3.4 mmol/L (3.5-5.1) L 08/21/20 04:15 BUN 15 mg/dL (7-18) 08/21/20 04:15 Creatinine 0.64 mg/dL (0.55-1.3) 08/21/20 04:15 Glucose 95 mg/dL (74-106) 08/21/20 04:15 Phosphorus 3.1 mg/dL (2.5-4.9) 08/21/20 04:15 Magnesium 2.1 mg/dL (1.8-2.4) 08/21/20 04:15 Total Bilirubin 0.6 mg/dL (0.2-1.0) 08/19/20 05:41 AST 15 U/L (15-37) 08/19/20 05:41 ALT 23 U/L (12-78) 08/19/20 05:41 Alkaline Phosphatase 68 U/L (45-117) 08/19/20 05:41 Home Medications: Alpha Lipoic Acid 100 mg PO BID 08/20/20 Amlodipine [Norvasc*] 5 mg PO DAILY 08/20/20 Apixaban [Eliquis] 5 mg PO BID 08/20/20 Aspirin 81 mg PO DAILY 08/20/20 Atorvastatin Calcium [Lipitor] 40 mg PO BEDTIME 08/20/20 Baclofen [Lioresal*] 1 tab PO TID 08/20/20 Cyanocobalamin (Vitamin B-12) [Vitamin B12] 1,000 mcg PO DAILY 08/20/20 Ergocalciferol (Vitamin D2) [Vitamin D 50,000 Unit Cap] 1 cap PO TID 08/20/20 Metoprolol Tartrate [Lopressor*] 25 mg PO BID 08/20/20 Pregabalin [Lyrica*] 50 mg PO BID 08/20/20 Trazodone [Desyrel*] 50 mg PO BEDTIME 08/20/20 lisinopriL [Prinivil*] 5 mg PO DAILY 08/20/20 Diet: AHA Activity: Fall precautions Followup: Unknown,U [Primary Care Provider] - Time spent managing pt's care (in minutes): 38
[2020-08-21 16:46] VITALS: BP 145/60; TEMP 98.1
== END 2020-08-21 19:50 | DRG 948 ==
LOC: ER 11:24 → ERHOLD 15:13 → 2ND 16:55 → OBSVTOIN 08-20 11:13
PROVIDERS: ADMIT Hospitalist; ATTEND Internal Medicine
DX: R53.81 Other malaise (principal); G81.94 Hemiplegia, unspecified affecting left nondominant side; E87.0 Hyperosmolality and hypernatremia; A04.72 Enterocolitis due to Clostridium difficile, not specified as recurrent; K74.60 Unspecified cirrhosis of liver; I10 Essential (primary) hypertension; E87.6 Hypokalemia; Z79.01 Long term (current) use of anticoagulants; Z79.899 Other long term (current) drug therapy; Z79.82 Long term (current) use of aspirin; Z87.891 Personal history of nicotine dependence; Z91.81 History of falling; Z20.828 Contact with and (suspected) exposure to other viral communicable diseases; Z23 Encounter for immunization
CPT/HCPCS: 36415; 80048; 80053; 80076; 81003; 82550; 83735; 84100; 84132; 85025; 85610; 87324; 87449; 87493; 90471; 90732; 93005; 94760; 97110; 97112; 97530; 99285; J0360; J1650; J3480; J7030; J7040; U0002